=== PATIENT | female | born 1935 | race Caucasian/White ===

== ENCOUNTER 2019-09-11 13:35 | Inpatient (IN) | payer OTHER, MEDICAID ==
[2019-09-11] VITALS (9 sets, daily range): BP systolic 99–146
[~2019-09-11] VITALS: Ht 152.4 cm; Wt 45.4 kg
--- NOTE | 2019-09-11 13:42 | NUR ---
Patient triaged and remains in hallway on EMS gurney. VSS and patient appears in no acute distress at this time. Accompanied by EMS crew, awaiting available bed, and MD notified of need for MSE.
[2019-09-11] MEDS ORDERED: GABA-529 PO (13:50)
[2019-09-11] MEDS ORDERED: SENN8.6T19 PO (13:50)
[2019-09-11] MEDS ORDERED: NEPH PO (13:50)
[2019-09-11] MEDS ORDERED: VISM150C PO (13:50)
[2019-09-11] MEDS ORDERED: VIT1CAPS46 PO (13:50)
[2019-09-11] MEDS ORDERED: ASCO500T20 PO (13:50)
[2019-09-11] MEDS ORDERED: ACET-2165 PO (13:50)
[2019-09-11] MEDS ORDERED: ONDA4TAB5 PO (13:50)
--- NOTE | 2019-09-11 13:51 | NUR ---
Medication reconciliation completed with information provided by [facility]. Any prior medication reconciliation on file was reviewed and corrected.
--- NOTE | 2019-09-11 14:00 | NUR ---
EKG done and given to
[2019-09-11] MEDS ORDERED: NACL 0.9% 1,000 ML IV ONE (14:05)
--- NOTE | 2019-09-11 14:14 | NUR ---
Patient to ER bed 04 to gown for evaluation. Side rails up.
--- NOTE | 2019-09-11 14:18 | NUR ---
pt arrives from [facility], sent by Dr. Abbott. PT arrives w/ gen weakness and poor appetite. Pt is AAOx2. youth nutritional monitor placed.
--- NOTE | 2019-09-11 14:20 | NUR ---
ER at bedside examining patient.
[2019-09-11 14:34] LABS: BASOPHILS % (AUTO) 0.1 % (0.0-2.0); EOSINOPHILS # (AUTO) 0.1 K/uL (0.0-0.4); EOSINOPHILS % (AUTO) 0.4 % (0.0-4.0); HEMATOCRIT 32.8 % (36-48); HEMOGLOBIN 10.8 g/dL (12.0-16.0); LYMPHOCYTES # (AUTO) 0.9 K/uL (1.0-5.5); LYMPHOCYTES % (AUTO) 6.7 % (20.5-51.5); MEAN CORPUSCULAR HEMOGLOBIN 28 pg (27-31); MEAN CORPUSCULAR HGB CONC 33 % (32-36); MEAN CORPUSCULAR VOLUME 84 fL (79.0-98.0); NEUTROPHILS # (AUTO) 12.2 K/uL (1.8-7.7); NEUTROPHILS % (AUTO) 85.8 % (40.0-70.0); PLATELET COUNT (AUTO) 615 K/uL (130-430); RED BLOOD CELL COUNT(AUTO) 3.93 MIL/uL (4.2-6.2); RED CELL DISTRIBUTION WIDTH 16.8 % (9.0-15.0); WHITE BLOOD COUNT (AUTO) 14.2 K/uL (4.8-10.8)
[2019-09-11 14:51] LABS: ANION GAP 4 (5-15); CHLORIDE 91 mmol/L (98-107); CREATININE 0.44 mg/dL (0.55-1.30); GLUCOSE 98 mg/dL (70-99); SODIUM SERUM 122 mmol/L (136-145); UREA NITROGEN, BLOOD 13 mg/dL (8-21)
[2019-09-11 14:58] LABS: ALANINE AMINOTRANSFERASE 78 U/L (12-78); ALBUMIN 1.5 g/dL (3.4-4.8); ASPARTATE AMINOTRANSFERASE 38 U/L (10-37); LIPASE 49 U/L (73-393); TOTAL BILIRUBIN 0.3 mg/dL (0.0-1.0)
[2019-09-11 14:59] LABS: CALCIUM 6.8 mg/dL (8.4-11.0)
[2019-09-11] MEDS ORDERED: IPRATROPIUM BROM 0.5 MG/2.5 ML VIAL.NEB (ATROVENT) INH ONE (15:00)
[2019-09-11] MEDS ORDERED: LEVOFLOXACIN 500 MG/D5W 100 ML IV ONE (15:00)
[2019-09-11] MEDS ORDERED: methylPREDNISolone SOD SUCC/PF 62.5 MG/ML VIAL IVP ONE (15:00)
[2019-09-11] MEDS ORDERED: ALBUTEROL SULFATE 0.083% 2.5 MG/3 ML VIAL.NEB INH ONE (15:00)
[2019-09-11 15:12] LABS: INR 1.2 (0.8-1.2); PROTHROMBIN TIME 11.6 SECS (9.5-12.5)
--- NOTE | 2019-09-11 15:15 | NUR ---
pt currently getting a breathing tx at the bedside.
--- NOTE | 2019-09-11 15:35 | NUR ---
ND 1l and Levaquin currently infusing per MD order.
[2019-09-11] MEDS ORDERED: PIPERACILLIN/TAZO 3.375 GM in NS 50 ML IV ONE (16:00)
--- NOTE | 2019-09-11 16:07 | NUR ---
Patient will be admitted to care of Dr. Abbott. Admitted to ICU unit. Will go to room 7. Complete and up to date summary report printed. SBAR report to be given at bedside with opportunity for questions. Order obtained from Dr. Abbott notifed that Zosyn IV order would be a one time dose an additional orders need to be placed in CPOE.
[2019-09-11] MEDS ORDERED: VANCOMYCIN HCL 1 GM/NS PREMIX 250 ML IV SCH (16:30)
--- NOTE | 2019-09-11 16:40 | NUR ---
# 20 gauge angiocath placed to LAC. Use of asceptic technique. Opsite placed over site. Blood return noted. Blood for lab drawn from site. Flushed with 10 cc of normal saline. No evidence of infiltration noted. Patient tolerated well.
[2019-09-11] MEDS ORDERED: PIPERACILLIN/TAZOBACTAM 3.375 GM/VIAL (ZOSYN) IV ONE (16:43)
[2019-09-11] MEDS ORDERED: ONDANSETRON 4 MG ODT TAB PO PRN (16:45)
[2019-09-11] MEDS ORDERED: ACETAMINOPHEN 325 MG TABLET PO PRN (16:45)
--- NOTE | 2019-09-11 16:57 | NUR ---
Transferred Pt arrived to ICU 7 at 1650. Bedside report received from Jenae GRACIA at 1657. Pt denies any pain at this time. Blood pressure stable 110/50, Heart rate of 127, oxygen saturation 97% with 2 L via NC, respirations 22.
--- NOTE | 2019-09-11 17:00 | NUR ---
Patient will be admitted to care of Dr. Abbott. Admitted to ICU unit. Will go to room 7. Belongings list completed. Complete and up to date summary report printed.Bedside report given to Oksana GRACIA. IV sites x 2 patent and infusing well.
--- NOTE | 2019-09-11 17:32 | NUR ---
CONSULTS CALLED DR. Robert BOSWELL - RE: PNEUMONIA, SPOKE WITH BRIDGER (EXCHANGE) DR. Funmilayo BOSWELL - RE: HYPOTENSION/PNA DR. RAO - DR. LLANOS IS COVERING FOR HIM, SPOKE WITH JOSE ALEJANDRO ALCOCER: HYPONATREMIA, DR. BATES COVERING. SPOKE WITH PHYLLIS.
--- NOTE | 2019-09-11 18:00 | NUR ---
MD CONSULT DR. BATES, COVERING FOR DR. WRAY CALLED, MADE AWARE OF CONSULT. WITH ORDERS.
--- NOTE | 2019-09-11 18:15 | NUR ---
CHG Pt received CHG, tolerated well.
[2019-09-11 18:54] LABS: BILIRUBIN,URINE NEGATIVE (NEGATIVE); BLOOD, URINE 3+ (NEGATIVE); CLARITY/URINE CLOUDY (CLEAR); COLOR,URINE YELLOW (YELLOW); GLUCOSE,URINE NEGATIVE (NEGATIVE); KETONES,URINE NEGATIVE (NEGATIVE); LEUKOCYTE ESTERASE ,URINE 1+ (NEGATIVE); NITRITE, URINE NEGATIVE (NEGATIVE); PROTEIN URINE 2+ (NEGATIVE)
[2019-09-11] MEDS ORDERED: SODIUM CHLORIDE 3% *HI-ALERT* 150 ML IV SCH (19:00)
--- NOTE | 2019-09-11 19:20 | NUR ---
PM ASSESSMENT Pt in bed with eyes open resting comfortably. Able to follow commands and verbalize needs. Sinus tachycardia seen on the monitor. Pt on 2L O2 via NC tolerating well with O2 sats @ 100% and even and unlabored breathing. Pt has a LFA 24g SL and L AC 20g SL. C/D/I. Pt doesn't verbalize any needs at this time. Bed is locked and in lowest position, call light within reach, will cont to monitor pt.
--- NOTE | 2019-09-11 19:26 | NUR ---
Closing Notes Pt endorsed to Timur GRACIA. Pt resting with no signs of distress or complaints of pain
--- NOTE | 2019-09-11 19:35 | NUR ---
WOODY CATH: # 16 FR Woody catheter with 10 cc bulb inserted with use of sterile technique. Bulb inflated with 10 cc sterile water. Immediate return of urine noted. Bedside drainage bag placed below level of bladder. Pt tolerated procedure well. Will cont to monitor pt.
[2019-09-11 19:36] LABS: HEMATOCRIT 29.2 % (36-48); HEMOGLOBIN 9.7 g/dL (12.0-16.0); MEAN CORPUSCULAR HEMOGLOBIN 28 pg (27-31); MEAN CORPUSCULAR HGB CONC 33 % (32-36); MEAN CORPUSCULAR VOLUME 84 fL (79.0-98.0); PLATELET COUNT (AUTO) 490 K/uL (130-430); WHITE BLOOD COUNT (AUTO) 18.4 K/uL (4.8-10.8)
[2019-09-11] MEDS ORDERED: SODIUM CHLORIDE 3% *HI-ALERT* 500 ML IV ONE (19:57)
[2019-09-11 20:36] LABS: BACTERIA,URINE MODERATE /HPF (None Seen); MUCUS,URINE 3+ /LPF (None Seen); RBC,URINE 50-80 /HPF (0-3); WBC,URINE 20-50 /HPF (0-3)
[2019-09-11 21:01] LABS: ALANINE AMINOTRANSFERASE 70 U/L (12-78); ANION GAP 10 (5-15); ASPARTATE AMINOTRANSFERASE 53 U/L (10-37); CHLORIDE 94 mmol/L (98-107); CREATININE 0.28 mg/dL (0.55-1.30); GLUCOSE 148 mg/dL (70-99); PHOSPHORUS 3.1 mg/dL (2.7-4.5); POTASSIUM 4.4 mmol/L (3.5-5.1); SODIUM SERUM 124 mmol/L (136-145); TOTAL BILIRUBIN 0.4 mg/dL (0.0-1.0); UREA NITROGEN, BLOOD 12 mg/dL (8-21)
[2019-09-11 21:20] LABS: CALCIUM 6.9 mg/dL (8.4-11.0)
[2019-09-11] MEDS: NORMAL SALINE 5 ML DISP.SYRIN IVF SCH (21:22)
--- NOTE | 2019-09-11 21:28 | NUR ---
Dr. Conway called at this time for lab results. New orders received, will carry out orders. Will cont to monitor pt.
[2019-09-11] MEDS ORDERED: ALBUMIN HUMAN 25% 100 ML IV ONE (22:04)
[2019-09-11] MEDS ORDERED: MAGNESIUM SULFATE 1 GM/2 ML VIAL ONE ×2 (22:06→22:14)
[2019-09-11 22:13] LABS: BAND % (MANUAL) 21 % (0-6); BASOPHILS % (MANUAL) 0 % (0-2); EOSINOPHILS % (MANUAL) 0 % (0-7); LYMPHOCYTES % (MANUAL) 0 % (20-46); MONOCYTES % (MANUAL) 0 % (0-11)
[2019-09-11] MEDS ORDERED: MAGNESIUM SULFATE IV SCH (22:15)
[2019-09-11] MEDS ORDERED: NACL 0.9% IV SCH (22:15)
[2019-09-11] MEDS: ALBUMIN HUMAN 25% 100 ML IV SCH (22:21)
[2019-09-11 22:27] LABS: BILIRUBIN,URINE NEGATIVE (NEGATIVE); BLOOD, URINE 2+ (NEGATIVE); CLARITY/URINE CLEAR (CLEAR); COLOR,URINE YELLOW (YELLOW); GLUCOSE,URINE NEGATIVE (NEGATIVE); KETONES,URINE NEGATIVE (NEGATIVE); LEUKOCYTE ESTERASE ,URINE NEGATIVE (NEGATIVE); NITRITE, URINE NEGATIVE (NEGATIVE); PROTEIN URINE NEGATIVE (NEGATIVE)
[2019-09-11 23:21] LABS: BACTERIA,URINE FEW /HPF (None Seen); WBC,URINE 0-3 /HPF (0-3)
[2019-09-11] MEDS ORDERED: PIPERACILLIN/TAZOBACTAM 2.25 GM VIAL IV ONE (23:50)
[2019-09-11] MEDS ORDERED: VANCOMYCIN HCL 500 MG/VIAL IV ONE (23:50)
[2019-09-11] MEDS: PIPERACILLIN/TAZO 2.25G/DEX-IS 50 ML IV SCH (23:51)
[2019-09-12] VITALS (17 sets, daily range): BP systolic 92–130
--- NOTE | 2019-09-12 02:10 | NUR ---
Pt in bed with eyes closed resting comfortably, no signs of acute distress or discomfort noted. Pt repositioned at this time. Bed is locked and in lowest position, call light within reach, will cont to monitor pt.
[2019-09-12] MEDS: ALBUMIN HUMAN 25% 100 ML IV SCH ×2 (02:48→09:25)
--- NOTE | 2019-09-12 04:10 | NUR ---
Pt in bed with eyes closed resting comfortably, no signs of acute distress or dis comfort noted. Bed is locked and in lowest position, call light within reach, will cont to monitor pt.
[2019-09-12] MEDS ORDERED: VANCOMYCIN HCL 500 MG in NS 100 ML IV SCH (05:00)
[2019-09-12] MEDS: NORMAL SALINE 5 ML DISP.SYRIN IVF SCH ×2 (05:31→21:01)
[2019-09-12] MEDS: PIPERACILLIN/TAZO 2.25G/DEX-IS 50 ML IV SCH ×3 (05:32→16:58)
[2019-09-12 06:02] LABS: BASOPHILS % (AUTO) 0.1 % (0.0-2.0); HEMATOCRIT 23.6 % (36-48); HEMOGLOBIN 7.8 g/dL (12.0-16.0); LYMPHOCYTES # (AUTO) 0.4 K/uL (1.0-5.5); LYMPHOCYTES % (AUTO) 4.2 % (20.5-51.5); MEAN CORPUSCULAR HEMOGLOBIN 28 pg (27-31); MEAN CORPUSCULAR HGB CONC 33 % (32-36); MEAN CORPUSCULAR VOLUME 84 fL (79.0-98.0); MONOCYTES # (AUTO) 0.2 K/uL (0.0-1.0); MONOCYTES % (AUTO) 2.6 % (1.7-9.3); NEUTROPHILS # (AUTO) 8.8 K/uL (1.8-7.7); NEUTROPHILS % (AUTO) 93.1 % (40.0-70.0); PLATELET COUNT (AUTO) 473 K/uL (130-430); RED BLOOD CELL COUNT(AUTO) 2.82 MIL/uL (4.2-6.2); RED CELL DISTRIBUTION WIDTH 17.1 % (9.0-15.0); WHITE BLOOD COUNT (AUTO) 9.5 K/uL (4.8-10.8)
[2019-09-12 06:18] LABS: ALANINE AMINOTRANSFERASE 48 U/L (12-78); ALBUMIN 2.5 g/dL (3.4-4.8); ANION GAP 11 (5-15); ASPARTATE AMINOTRANSFERASE 26 U/L (10-37); CALCIUM 7.3 mg/dL (8.4-11.0); CHLORIDE 98 mmol/L (98-107); CREATININE 0.34 mg/dL (0.55-1.30); GLUCOSE 146 mg/dL (70-99); POTASSIUM 3.7 mmol/L (3.5-5.1); SODIUM SERUM 133 mmol/L (136-145); TOTAL BILIRUBIN 0.4 mg/dL (0.0-1.0); UREA NITROGEN, BLOOD 9 mg/dL (8-21)
[2019-09-12 06:29] LABS: TOTAL IRON BIND. CAPACITY 45 ug/dL (250-450)
--- NOTE | 2019-09-12 06:52 | NUR ---
Nutrition Update Richard Scale 15 noted. Pt admitted for Hypotension, Hyponatremia, Pneumonia Diet: no diet order BMI: 19.5 kg/m2 RD to follow per nutrition care standards.
--- NOTE | 2019-09-12 07:20 | NUR ---
ENDORSEMENT Report given to oncoming dayshift RN using SBAR format and pt care was endorsed. No signs of acute distress or discomfort noted.
[2019-09-12 07:23] LABS: PHOSPHORUS 3.2 mg/dL (2.7-4.5)
--- NOTE | 2019-09-12 07:50 | NUR ---
AM ASSESSMENT. PT VERBALLY RESPONSIVE, ASSESSED FOR BODY DISCOMFORTS, DENIES ANY, ABDOMEN DISTENDED, OFFERED SOMETHING TO DRINK, PT DECLINED, IVF CHANGED TO D5NS AT 30 ML PER HR ORDERED. TURNED PT AND REPOSITIONED IN BED, WITH PILLOW TO SUPPORT HER BACK.
--- NOTE | 2019-09-12 08:00 | NUR ---
IV. DRESSING ON LEFT FOREARM DATED 09/08, IV DISCONTINUED.
[2019-09-12] MEDS: D5NS 1,000 ML IV SCH (08:15)
[2019-09-12] MEDS: LEVOFLOXACIN 250 MG/D5W 50 ML IV SCH (08:18)
[2019-09-12] MEDS: ASCORBIC ACID 500 MG TABLET PO SCH (08:18)
[2019-09-12] MEDS: NEPHROVITE, (FOLIC ACID/VITAMIN B COMP W-C 1 TAB) PO SCH (08:18)
--- NOTE | 2019-09-12 08:50 | NUR ---
G.I. CONSULT. DR LLANOS CAME IN AND EXAMINED PT. NEW ORDERS RECEIVED.
--- NOTE | 2019-09-12 09:45 | NUR ---
CONSENT. EXPLAINED TO PT ABOUT CT SCAN, USING IV AND ORAL CONTRAST, PT SIGNED CONSENT.
--- NOTE | 2019-09-12 11:00 | NUR ---
CONTRAST. ORAL CONTRAST GIVEN, PT TOLERATED WELL.
[2019-09-12 11:44] LABS: URINE SODIUM, RANDOM 38 mmol/L (40-220)
[2019-09-12] MEDS ORDERED: IOHEXOL 100 ML IV ONE (13:32)
--- NOTE | 2019-09-12 13:40 | NUR ---
TO CT SCAN. PT TRANSPORTED VIA BED FOR CT SCAN OF THE ABDOMEN/PELVIS, ON CONTINUOUS O2 AND CARDIAC MONITORING.
--- NOTE | 2019-09-12 14:10 | NUR ---
Returned from CT to ICU bed 7 using ACLS protocol and RNBerny GUNTER on monitor upon return.
[2019-09-12] MEDS: SOD FERRIC GLUC COMPLEX/SUC 125 MG in NS 100 ML IV SCH (14:20)
--- NOTE | 2019-09-12 16:00 | NUR ---
TO [facility]. TRANSFERRED CARE TO SAMIA WING. PT TRANSPORTED VIA BED TO ROOM 119-C, WITH PERSONAL BELONGINGS, ON CARDIAC MONITORING AND O2 VIA NASAL CANNULA.
--- NOTE | 2019-09-12 16:10 | NUR ---
Transfer from ICU: Received patient from ICU. Patient is oriented x3. Denies dizziness. Oriented to room. Call light within reach.
[2019-09-12] MEDS: VANCOMYCIN HCL 500 MG in NS 100 ML IV SCH (18:20)
--- NOTE | 2019-09-12 19:00 | NUR ---
END OF SHIFT: NEEDS ATTENED. NO CHANGE IN ASSESSMENT
--- NOTE | 2019-09-12 19:20 | NUR ---
INITIAL NOTES: pt is awake, alert, oriented x 2, no pain, not distress. pt has ongoing ivf to left fore arm gauge 20-intact and patent. pt has iv lock to right fore arm gauge 20-intact and patent. pt has carpio catheter gibraltarian 18- draining to yellow urine. no skin breakdown on scd for dvt prophylaxis. discuss to plan of care. needs attended, fabi light in reach. side rails up. ow bed position and lock. will monitor.
--- NOTE | 2019-09-12 21:07 | NUR ---
CARE ENDORSE TO SAMIA CORBETT.
--- NOTE | 2019-09-12 22:00 | NUR ---
PT [id number] AWAKE ALERT AND ORIENTED X3 .PT ON HAVE ALITTLE SOB PT SATURATION AT 90% . OXYGENATION 88- 90% . OXGEN INCREASED TO 4LN/N CRTION UP TO ,SATURATION 94%.iv site intact .WILL CONTINUE TO MONITOR PT,S OXYGENATION .
[2019-09-13] VITALS (13 sets, daily range): BP systolic 102–138
--- NOTE | 2019-09-13 | NUR ---
PT SLEEPING SOUNDLY . WITH NO DIFFICULTYVITALS STABLE .
[2019-09-13] MEDS: PIPERACILLIN/TAZO 2.25G/DEX-IS 50 ML IV SCH ×4 (00:37→23:24)
--- NOTE | 2019-09-13 05:00 | NUR ---
PT AWAKE , TURNED AND REPOSITIONED .. PT HAVE NO SOB . WILL CONTIUE TO MONITOR PT,S FOR RESPITORY DISTRESS.
[2019-09-13] MEDS: NORMAL SALINE 5 ML DISP.SYRIN IVF SCH ×3 (06:51→22:00)
[2019-09-13 06:56] LABS: BASOPHILS % (AUTO) 0.1 % (0.0-2.0); HEMATOCRIT 28.4 % (36-48); HEMOGLOBIN 9.4 g/dL (12.0-16.0); LYMPHOCYTES # (AUTO) 0.9 K/uL (1.0-5.5); LYMPHOCYTES % (AUTO) 4.4 % (20.5-51.5); MEAN CORPUSCULAR HEMOGLOBIN 28 pg (27-31); MEAN CORPUSCULAR HGB CONC 33 % (32-36); MEAN CORPUSCULAR VOLUME 83 fL (79.0-98.0); MONOCYTES # (AUTO) 0.9 K/uL (0.0-1.0); MONOCYTES % (AUTO) 4.5 % (1.7-9.3); NEUTROPHILS # (AUTO) 18.9 K/uL (1.8-7.7); PLATELET COUNT (AUTO) 613 K/uL (130-430); RED BLOOD CELL COUNT(AUTO) 3.41 MIL/uL (4.2-6.2); RED CELL DISTRIBUTION WIDTH 17.4 % (9.0-15.0)
[2019-09-13 07:01] LABS: ALANINE AMINOTRANSFERASE 41 U/L (12-78); ALBUMIN 2.6 g/dL (3.4-4.8); ANION GAP 8 (5-15); ASPARTATE AMINOTRANSFERASE 22 U/L (10-37); CALCIUM 7.8 mg/dL (8.4-11.0); CHLORIDE 99 mmol/L (98-107); CREATININE 0.36 mg/dL (0.55-1.30); GLUCOSE 188 mg/dL (70-99); POTASSIUM 3.2 mmol/L (3.5-5.1); SODIUM SERUM 133 mmol/L (136-145); TOTAL BILIRUBIN 0.3 mg/dL (0.0-1.0); UREA NITROGEN, BLOOD 11 mg/dL (8-21)
[2019-09-13 07:37] LABS: WHITE BLOOD COUNT (AUTO) 20.8 K/uL (4.8-10.8)
[2019-09-13] MEDS: D5NS 1,000 ML IV SCH ×2 (07:40→17:47)
[2019-09-13] MEDS: VANCOMYCIN HCL 500 MG in NS 100 ML IV SCH ×2 (07:50→17:47)
[2019-09-13 08:09] LABS: FOLATE (FOLIC ACID) >20.0 ng/mL (>3.0)
--- NOTE | 2019-09-13 09:10 | NUR ---
Routine Scheduled po medications and IV abx given per order. Patient stable at this time.
--- NOTE | 2019-09-13 09:10 | NUR ---
MRSA Critical result Walking down max and US asking bedside RN to take a call from lab for a critical result. Observed MT ask RN 2x and RN unable to take the call. No other RN's available in sight. I took critical result and notified Olga in person of result MRSA positive nares.
[2019-09-13] MEDS: NEPHROVITE, (FOLIC ACID/VITAMIN B COMP W-C 1 TAB) PO SCH (09:11)
[2019-09-13] MEDS: ASCORBIC ACID 500 MG TABLET PO SCH (09:11)
[2019-09-13] MEDS: LEVOFLOXACIN 250 MG/D5W 50 ML IV SCH (09:11)
[2019-09-13] MEDS: SOD FERRIC GLUC COMPLEX/SUC 125 MG in NS 100 ML IV SCH (11:43)
--- NOTE | 2019-09-13 11:45 | NUR ---
Routine Scheduled IV med (ferrlecit) given per order. Patient resting quietly in bed with no respiratory distress noted.
--- NOTE | 2019-09-13 13:15 | NUR ---
Routine Scheduled IV abx given per order. Patient resting in bed with no respiratory distress noted.
--- NOTE | 2019-09-13 15:45 | NUR ---
Routine Patient cold and clammy, with resp rate of 32. Checked blood sugar: 432 mg/dl. Doctor call and new orders given and carried out; stat ABG. Patient placed on BiPap. Addendum: 09/13/19 at 1946 by Olga Hernandez RN 1545: very low O2 sats 1415: Patient transferred to ICU.
[2019-09-13] MEDS ORDERED: POTASSIUM CHLORIDE 20 MEQ TAB.PRT.SR PO ONE (16:00)
[2019-09-13] MEDS ORDERED: IPRATROPIUM/ALBUTEROL SULFATE 3 ML AMPUL.NEB (DUONEB) INH ONE (16:00)
[2019-09-13] MEDS ORDERED: IPRATROPIUM/ALBUTEROL SULFATE 3 ML AMPUL.NEB (DUONEB) INH PRN (16:00)
--- NOTE | 2019-09-13 16:20 | NUR ---
Transfer Pt transferred to ICU bed 1, report received from Olga GRACIA.
--- NOTE | 2019-09-13 16:50 | NUR ---
Dietitian Recommendations * Recommend continuing clear liquid diet (ONS Ensure Clear TID provides 720 kcal/day, 24 gm protein/day) * Consider advance diet if/when medically appropriate LP, RD Please refer to Nutrition Assessment for details. Addendum: 09/13/19 at [address] Amended: Links added.
--- NOTE | 2019-09-13 17:02 | NUR ---
Spoke to Dr. Abbott to change PO potassium to IV. New orders received.
--- NOTE | 2019-09-13 17:11 | NUR ---
MD Michelle kamara, spoke to Millie with the exchange, awaiting call back.
[2019-09-13] MEDS ORDERED: POTASSIUM CHLORIDE 40 MEQ in NS 250 ML IV ONE (17:15)
--- NOTE | 2019-09-13 18:35 | NUR ---
MD Dr. Abbott at bedside with pt.
--- NOTE | 2019-09-13 19:20 | NUR ---
Closing Notes Report given to night RN. Pt resting comfortably with eyes open, no complaints of pain or distress. Isolation precautions observed.
--- NOTE | 2019-09-13 20:00 | NUR ---
ASSESSMENT Pt alert, answers simple "yes" or "no" questions. Bipap in use, Pt comfortable. 20ga right forearm and 20ga LAC no redness or swelling noted @ sites. IVF infusing. Almaraz cath in use draining lakshmi urine. Low air loss mattress in use, SCD in use.
--- NOTE | 2019-09-13 20:00 | NUR ---
TURNING Pt not tolerating turning from side to side. Pt becomes very short of breath and oxygen saturation decreases.
--- NOTE | 2019-09-13 21:03 | NUR ---
AT 20:40 BIPAP RESTARTED AFTER 10 MINS ON HIGH FLOW AT 60% FIO2. PT DESATURATED IN THE 60'S. RN AWARE.
--- NOTE | 2019-09-13 21:51 | NUR ---
MD QUEZADA-DR. COFFEY [phone] SPOKE TO SUNITHA
--- NOTE | 2019-09-13 21:55 | NUR ---
DR ERLINDA Mathews notified regarding O2 saturation less than 90%. No orders received. Continue to monitor for changes.
[2019-09-13] MEDS: FUROSEMIDE 20 MG/2 ML VIAL IVP SCH (23:25)
[2019-09-13] MEDS: IPRATROPIUM/ALBUTEROL SULFATE 3 ML AMPUL.NEB (DUONEB) INH SCH (23:35)
[2019-09-14] VITALS (23 sets, daily range): BP systolic 100–138
[2019-09-14] MEDS: IPRATROPIUM/ALBUTEROL SULFATE 3 ML AMPUL.NEB (DUONEB) INH SCH ×5 (04:59→20:36)
[2019-09-14] MEDS: VANCOMYCIN HCL 500 MG in NS 100 ML IV SCH (05:42)
[2019-09-14] MEDS: FUROSEMIDE 20 MG/2 ML VIAL IVP SCH (07:38)
[2019-09-14] MEDS: PIPERACILLIN/TAZO 2.25G/DEX-IS 50 ML IV SCH (07:39)
[2019-09-14] MEDS ORDERED: FUROSEMIDE 40 MG/4 ML VIAL ONE (07:45)
--- NOTE | 2019-09-14 08:00 | NUR ---
INITIAL ASSESSMENT DONE. PT IS AWAKE, ALERT FOLLOWING COMMANDS. SCOPE SHOWS STACH, NO ECTOPICS. BP STABLE. ON BIPAP, 100% FIO2. UNABLE TO TOLERATES PO. WOODY CATH DRAINING WELL
--- NOTE | 2019-09-14 08:30 | NUR ---
Dr. Mathews was here, ABG results noted. Orders received..
[2019-09-14] MEDS: LEVOFLOXACIN 250 MG/D5W 50 ML IV SCH (08:38)
[2019-09-14] MEDS: NEPHROVITE, (FOLIC ACID/VITAMIN B COMP W-C 1 TAB) PO SCH (09:00)
[2019-09-14] MEDS: ASCORBIC ACID 500 MG TABLET PO SCH (09:00)
[2019-09-14] MEDS ORDERED: cefTRIAXone 1 GM in D5W 50 ML IV SCH (10:00)
[2019-09-14] MEDS: SOD FERRIC GLUC COMPLEX/SUC 125 MG in NS 100 ML IV SCH (11:08)
--- NOTE | 2019-09-14 13:00 | NUR ---
Dr. Abbott called upated with pt condition. order received to keep pt NPO. P t desaturates very easily if BIPAP is off face.
[2019-09-14] MEDS: FUROSEMIDE 100 MG in D5W 90 ML IV SCH (13:17)
--- NOTE | 2019-09-14 14:00 | NUR ---
Lasix drip started at 2mg/hr. repositioned to side. urine output adequate.
--- NOTE | 2019-09-14 15:15 | NUR ---
Attempted to reach pt's conservator to obtain consent for PICC line , unable to reach.
--- NOTE | 2019-09-14 15:30 | NUR ---
Dr. Conway was here, update given. Repositioned to side.
--- NOTE | 2019-09-14 17:30 | NUR ---
Pt desaturating . to 70's. O2 at 100% FIO2. RT at bedside, suctioned pt.
[2019-09-14] MEDS ORDERED: VANCOMYCIN HCL 750 MG in NS 250 ML IV SCH (18:00)
--- NOTE | 2019-09-14 18:40 | NUR ---
Dr. Abdul called for ABG results ordered intubation' ER MD Dr. Akers called.
--- NOTE | 2019-09-14 18:55 | NUR ---
Dr Abbott called regarding pt's condition deteriorating, o2 sat 70's. ABG'S ordered.
--- NOTE | 2019-09-14 19:15 | NUR ---
Dr. Akers at bedside, intubated pt orally without difficulty. SBAR Report given to SAMIA Fernandez.
--- NOTE | 2019-09-14 20:00 | NUR ---
ORALLY INTUBATED. SUCTIONED WITH MOD AMOUNT OF THICK PINK-TINGED YELLOW MUCUS OBTAINED. OGT INSERTED, CLAMPED. PLACEMENT VERIFIED BY AUSCULTATION AND POST INTUBATION C-XRAY. ON LASIX DRIP AT 2 MG/HR. SINUS TACH. BREATH SOUNDS WITH RALES AND RHONCHI. BOWEL SOUNDS (+). PULSES PALPABLE. SKIN W/DRY. COLOR SATISFACTORY. HOB UP TO COMFORT. SIDE RAILS UP. CALL LIGHTS WITHIN REACH. KOBE SCD'S IN PLACE. SINUS TACHYCARDIA
--- NOTE | 2019-09-14 20:50 | NUR ---
DR HAQ NOTIFIED OF ABG RESULTS. NEW ORDERS GIVEN TO BE IMPLEMENTED.
--- NOTE | 2019-09-14 22:00 | NUR ---
SUCTIONED. TURNED. HS CARE DONE.
--- NOTE | 2019-09-14 23:15 | NUR ---
FIO2 DECREASED TO 90% BY RT PER STANDING ORDER.
[2019-09-15] VITALS (34 sets, daily range): BP systolic 89–131
--- NOTE | 2019-09-15 | NUR ---
MORE ALERT. VSS. OPENS EYES SPONTANEOUSLY. SQUEEZED HANDS ON COMMAND. SUCTIONED. ORAL CARE RENDERED.
--- NOTE | 2019-09-15 01:00 | NUR ---
DR Robert BOSWELL HERE, UPDATED ON STATUS. NO NEW ORDERS GIVEN AT THIS TIME.
--- NOTE | 2019-09-15 01:45 | NUR ---
FIO2 DECREASED TO 70 % PER STANDING ORDER.
--- NOTE | 2019-09-15 02:50 | NUR ---
FIO2 DECREASED TO 60% BY RT PER STANDING ORDER.
[2019-09-15] MEDS: IPRATROPIUM/ALBUTEROL SULFATE 3 ML AMPUL.NEB (DUONEB) INH SCH ×6 (02:54→23:05)
--- NOTE | 2019-09-15 03:00 | NUR ---
1 SMALL SOFT BROWN STOOL DEFECATED, CLEANED. LUIS E-CARE GIVEN. WOODY CARE, BACK CARE, Z-GUARD APPLIED TO PERINEUM, SKIN CARE RENDERED. PARTIAL LINEN CHANGE. MINIMAL ASSIST WITH TURNING. LEEROY PROC WELL.
--- NOTE | 2019-09-15 04:00 | NUR ---
RESISTIVE TO ORAL CARE. SUCTIONED. TURNED.
--- NOTE | 2019-09-15 05:55 | NUR ---
FIO2 DECREASED TO 50% BY RT PER STANDING ORDER.
--- NOTE | 2019-09-15 06:00 | NUR ---
SLEPT FOR LONG PERIODS OF TIME. UO GOOD. REMAINS IN GUARDED CONDITION.
--- NOTE | 2019-09-15 07:10 | NUR ---
AM ASSESSMENT Pt received from night RN using SBAR
[2019-09-15 07:30] LABS: ANION GAP 8 (5-15); CHLORIDE 104 mmol/L (98-107); CREATININE 0.69 mg/dL (0.55-1.30); GLUCOSE 158 mg/dL (70-99); SODIUM SERUM 137 mmol/L (136-145); UREA NITROGEN, BLOOD 21 mg/dL (8-21)
[2019-09-15 07:35] LABS: POTASSIUM 2.3 mmol/L (3.5-5.1)
--- NOTE | 2019-09-15 07:45 | NUR ---
PAGED Funmilayo RIVAS PER NURSE DIALED [phone] SPOKE TO EXCHANGE
[2019-09-15] MEDS ORDERED: DILTIAZEM HCL 25 MG/5 ML VIAL ONE (08:26)
[2019-09-15] MEDS: ASCORBIC ACID 500 MG TABLET PO SCH (09:09)
[2019-09-15] MEDS: KCL 20 mEq in 100 mL (PREMIX) 100 ML IV SCH ×4 (09:09→21:12)
[2019-09-15] MEDS: LEVOFLOXACIN 250 MG/D5W 50 ML IV SCH (09:10)
--- NOTE | 2019-09-15 09:29 | NUR ---
MD Dr. Horner informed of pts heart rate, new orders received.
[2019-09-15] MEDS ORDERED: DILTIAZEM HCL 25 MG/5 ML VIAL IVP ONE (09:45)
[2019-09-15] MEDS: SOD FERRIC GLUC COMPLEX/SUC 125 MG in NS 100 ML IV SCH (10:19)
[2019-09-15] MEDS: FUROSEMIDE 100 MG in D5W 90 ML IV SCH ×2 (10:20→21:14)
--- NOTE | 2019-09-15 11:09 | NUR ---
PATIENT RESTING: Patient resting quietly. No acute distress noted.
[2019-09-15] MEDS: DILTIAZEM HCL 125 MG in D5W 100 ML IV SCH ×2 (11:46→21:16)
[2019-09-15] MEDS: MEROPENEM 500 MG in NS 50 ML IV SCH ×2 (11:46→21:25)
--- NOTE | 2019-09-15 16:00 | NUR ---
PATIENT RESTING: Patient resting quietly. No acute distress noted.
[2019-09-15] MEDS: KCL 40mEq in D5/0.45NS 1000 mL 1,000 ML IV SCH ×2 (18:10→21:10)
--- NOTE | 2019-09-15 19:15 | NUR ---
Closing Notes Pt endorsed to night RN using SBAR
--- NOTE | 2019-09-15 20:00 | NUR ---
OPENS EYES SPONTANEOUSLY. COMPLIANT TO SIMPLE COMMANDS. ORALLY INTUBATED. SUCTIONED WITH MOD AMOUNT OF THICK PINK TINGED YELLOW MUCUS OBTAINED. ORAL CARE RENDERED. OGT CLAMPED. KEVIN PICC LINE INSERTED EARLIER AT 1900. XRAY VERIFIED OKAY TO USE. ALL LINED CHANGED TO NEW LINES. ON LASIX DRIP AT 2 MG/HR. ON CARDIZEM DRIP AT 10 MG.HR. ON D5 1/2 NS + 40 MEQ KCL AT 30CC/HR. 2ND KRIDER D5W + 20 KCL AT 50CC/HR HUNG. BREATH SOUNDS WITH ADVENTITIOUS SOUNDS. BOWEL SOUNDS (+). PULSES PALPABLE. SKIN W/D. COLOR SATISFACTORY. HOB UP TO COMFORT. SIDE RAILS UP. CALL LIGHTS WITHIN REACH. WOODY CATH PATENT DRAINING CLEAR YEN URINE TO GRAVITY. AFIB ON THE MONITOR. KOBE SCD'S IN PLACE. CONTACT ISOLATION OBSERVED.
--- NOTE | 2019-09-15 22:00 | NUR ---
SUCTIONED WITH SAME RESULTS. HS CARE. TURNED.
[2019-09-16] VITALS (35 sets, daily range): BP systolic 96–126
--- NOTE | 2019-09-16 | NUR ---
DOZES ON AND OFF. ORAL CARE GIVEN. RESISTIVE. REPOSITIONED.
[2019-09-16] MEDS ORDERED: VANCOMYCIN HCL 1,000 MG in D5W 250 ML IV SCH (01:00)
--- NOTE | 2019-09-16 02:00 | NUR ---
HR SUSTAINING IN THE 130'S AND 140'S. CARDIZEM DRIP INCREASED TO 15 MG/HR PER PROTOCOL.
--- NOTE | 2019-09-16 03:20 | NUR ---
PT SATURATING IN THE HIGH 80'S, FIO2 INCREASED TO 55% PER STANDING ORDER.
[2019-09-16] MEDS: IPRATROPIUM/ALBUTEROL SULFATE 3 ML AMPUL.NEB (DUONEB) INH SCH ×6 (03:25→23:33)
--- NOTE | 2019-09-16 04:00 | NUR ---
SLEPT FOR LONG PERIODS OF TIME. ORAL CARE GIVEN. SUCTIONED. TURNED.
[2019-09-16] MEDS: DILTIAZEM HCL 125 MG in D5W 100 ML IV SCH (04:28)
--- NOTE | 2019-09-16 06:00 | NUR ---
UO ADEQUATE. 1 SMALL BROWN STOOL. CLEANED. LUIS E-CARE, WOODY CARE, SKIN CARE, BACK CARE DONE. PARTIAL LINEN CHANGE. ASSISTS WITH TURNING. LEEROY PROC WELL. CARDIZEM DRIP AT 15 MG/HR. REMAINS IN GUARDED CONDITION.
[2019-09-16 06:12] LABS: BASOPHILS % (AUTO) 0.1 % (0.0-2.0); LYMPHOCYTES # (AUTO) 0.6 K/uL (1.0-5.5); LYMPHOCYTES % (AUTO) 3.6 % (20.5-51.5); MEAN CORPUSCULAR HEMOGLOBIN 28 pg (27-31); MEAN CORPUSCULAR HGB CONC 33 % (32-36); MEAN CORPUSCULAR VOLUME 83 fL (79.0-98.0); MONOCYTES # (AUTO) 0.3 K/uL (0.0-1.0); MONOCYTES % (AUTO) 1.8 % (1.7-9.3); NEUTROPHILS # (AUTO) 15.9 K/uL (1.8-7.7); NEUTROPHILS % (AUTO) 94.5 % (40.0-70.0); PLATELET COUNT (AUTO) 194 K/uL (130-430); RED BLOOD CELL COUNT(AUTO) 2.89 MIL/uL (4.2-6.2); RED CELL DISTRIBUTION WIDTH 17.2 % (9.0-15.0); WHITE BLOOD COUNT (AUTO) 16.8 K/uL (4.8-10.8)
[2019-09-16 06:28] LABS: ALANINE AMINOTRANSFERASE 66 U/L (12-78); ALBUMIN 1.7 g/dL (3.4-4.8); ANION GAP 7 (5-15); ASPARTATE AMINOTRANSFERASE 60 U/L (10-37); CHLORIDE 106 mmol/L (98-107); CREATININE 0.86 mg/dL (0.55-1.30); GLUCOSE 173 mg/dL (70-99); PHOSPHORUS 2.9 mg/dL (2.7-4.5); SODIUM SERUM 141 mmol/L (136-145); TOTAL BILIRUBIN 0.4 mg/dL (0.0-1.0); UREA NITROGEN, BLOOD 32 mg/dL (8-21)
--- NOTE | 2019-09-16 08:00 | NUR ---
AM ASSESSMENT. PT ON LASIX DRIP AT 2 MG/HR, CARDIZEM DRIP AT 15 ML PER HR, EQUIPMENT APPLICATION SPECIALIST ATRIAL FIB, ASSESSED PT FOR PAIN, SHAKES HER HEAD TO SIDE FOR A NO ANSWER, TURNED IN BED FOR COMFORT, PT ORALLY INTUBATED, ORAL HYGIENE GIVEN, WILL CONTINUE TO MONITOR.
[2019-09-16] MEDS: VANCOMYCIN HCL 1 GM/NS PREMIX 250 ML IV SCH (08:08)
[2019-09-16] MEDS ORDERED: KCL 40 mEq in 100 mL (PREMIX) 100 ML IV ONE (08:15)
[2019-09-16] MEDS: FUROSEMIDE 100 MG in D5W 90 ML IV SCH (09:33)
[2019-09-16] MEDS: NEPHROVITE, (FOLIC ACID/VITAMIN B COMP W-C 1 TAB) PO SCH (09:35)
[2019-09-16] MEDS: ASCORBIC ACID 500 MG TABLET PO SCH (09:35)
[2019-09-16] MEDS: MEROPENEM 500 MG in NS 50 ML IV SCH ×2 (09:46→21:38)
[2019-09-16] MEDS: LEVOFLOXACIN 250 MG/D5W 50 ML IV SCH (10:43)
[2019-09-16] MEDS: SOD FERRIC GLUC COMPLEX/SUC 125 MG in NS 100 ML IV SCH (10:51)
[2019-09-16] MEDS ORDERED: DILTIAZEM HCL 60 MG TABLET PO ONE (14:15)
[2019-09-16] MEDS ORDERED: ONDANSETRON 4 MG ODT TAB GT PRN (14:22)
--- NOTE | 2019-09-16 14:45 | NUR ---
IV DRIPS. CARDIZEM DRIP DISCONTINUED ORDERED BY DR Michelle BOSWELL.
--- NOTE | 2019-09-16 15:35 | NUR ---
Nutrition F/U RD reviewed pt's current EMR record including diet Hx, physician notes, nursing notes, pertinent labs/meds/procedures, care trends, and care activity. Admission Dx: Hypotension, hyponatremia, pneumonia R pleural effusion Pt also found w/ sepsis per physician notes PMH: OA, UTI, L femur fracture per physician notes Current Diet Order/Nutrition Support: NPO x2 days Subjective Info: Pt was seen earlier today, +intubated on vent support w/ RN providing care at bedside. Pt has an OGT but no nutrition support. OGT used for meds only at this time per RN report. Electrical Designer rounded (Funmilayo Horner) during RD visit -- he stated start pt on TF (Pulmocare TF) -- RD suggested Vital AF TF formula as this is the closest formula to Pulmocare and is indicated for pt's current critical condition. Physician stated to start pt on 30 ml/hr, and increase to RD goal for feeding. Current % PO N/A NEW Estimated Energy Expenditure (kcals/day) -- Minute volume: 12.9/Temperature: 37.3 degrees C 1200 kcal/day (PSU 2003b for critical illness, intubated/vent support) Estimated Protein Required (g/day) 68-90 gm/day (1.5-2 gm/kg CBW for sepsis) Estimated Fluid Required (l/day) 1.1-1.4 L/day (25-30 ml/kg CBW for geriatric maintenance) Problem/Etiology/Signs/Symptoms (modified) Inadequate nutritional intakes related to lack of appetite/nutrition support as evidenced by negligible PO intake records/NPO status x2 days. *ongoing Expected Outcomes/Goals - Monitor advancement of diet, appetite, and PO intakes w/ goal of pt meeting greater than 50% of estimated nutritional needs, labs trending WNL, normal GI function, and skin integrity/wt maintenance Dietitian Recommendations * Recommend Vital AF 1.2 at 30 ml/hr, increase by 5 ml Q8h to goal rate of 40 ml/hr, Free Water Flush: 100 ml Q6h via OGT Provides: 1152 kcal/day, 72 gm protein/day, and 1179 ml free water/day Meets: 96% of estimated caloric needs and 80% of upper end of estimated protein needs Follow Up High Risk: F/U in 2-3 days
--- NOTE | 2019-09-16 15:43 | NUR ---
Dietitian Recommendations * Recommend Vital AF 1.2 at 30 ml/hr, increase by 5 ml Q8h to goal rate of 40 ml/hr, Free Water Flush: 100 ml Q6h via OGT Provides: 1152 kcal/day, 72 gm protein/day, and 1179 ml free water/day Meets: 96% of estimated caloric needs and 80% of upper end of estimated protein needs LP, RD Please refer to Nutrition F/U for derails.
--- NOTE | 2019-09-16 18:50 | NUR ---
PT SEEN AND EXAMINED BY DR BATES, NEW ORDERS RECEIVED AND CARRIED OUT.
--- NOTE | 2019-09-16 20:00 | NUR ---
RECEIVED REPORT PATIENT IS AWKE ORALL VENTED ON AC MODE RATE OF 14 WITH FIO2 55%,PATIENT IS ABLE TO FOLLOW SIMPLE COMMAND BY GRASPING MY HAND ON COMMAND AND MOVED HER LEGS ON COMMAND.PATIENT IS IN ATRIAL FIB RATE OF 112/MIN.PATIENT ON CONTINOUS FEEDING ,ABDOMEN IS SLGHT DISTENDED BUT SOFT HAS POSITIVE BOWEL SOUND.PATIENT MAINTENANCE IV IS INFUSING AT 30CC/HR INFUSING THRU HER PICC LINE ON RIGHT UPPER FOREARM,PATIENT IS ALSO ON LASIX DRP AT 4 MG/HR.WOODY CATH IN PLACE URINE IS CLEAR .BLATERAL SEQUENTIAL N PLACE.SUCTIONED FOR MINMAL SECRETIONS ,REPOSITIONED PATIENT WITH HEAD OF BED ELEVATED. PATIENT PREVIOUS IV SITE ON LEFT AC IS WEEPNG NO BLEEDING.
[2019-09-16] MEDS: ALBUMIN HUMAN 25% 100 ML IV SCH (20:21)
[2019-09-17] VITALS (34 sets, daily range): BP systolic 89–142
--- NOTE | 2019-09-17 | NUR ---
PATIENT REMAIN AWKE THE WHOLE NIGHT SHE LOOKS COMFORTABLE BUT SHE REMAIN N ATRIAL FIB,AND PATIENT DESATURATE TO THE LOW 90 AND HIGHER 80 WITHOUT EVEN DOING ANYTHING. RESPIRATORY GAVE PATIENT BREATHING TREATMENT AND THAT IMPROVE SATURATON.
[2019-09-17] MEDS: DILTIAZEM HCL 60 MG TABLET GT SCH ×4 (00:11→18:00)
[2019-09-17] MEDS: ALBUMIN HUMAN 25% 100 ML IV SCH ×2 (03:41→11:39)
[2019-09-17] MEDS ORDERED: ALBUMIN HUMAN 25% 50 ML IV ONE ×2 (03:51→04:40)
--- NOTE | 2019-09-17 04:30 | NUR ---
CHLORHEXIDIE BATH RENDERED,PATIENT LEFT ANTECUBITAL SITE IS WEEING SEROUSANGUINOUS DRAINAGE.PATIENT DESAT URATE AGAIN AND RESPIORATORY CHANGE HER PULSE OX AND INCREASED FIO12 TO 60% PATIENT TOLERATED FEEDING SO ITS INCREASED TO 40ML/HR.
[2019-09-17 06:35] LABS: ALANINE AMINOTRANSFERASE 65 U/L (12-78); ALBUMIN 2.2 g/dL (3.4-4.8); ANION GAP 8 (5-15); ASPARTATE AMINOTRANSFERASE 55 U/L (10-37); CALCIUM 7.9 mg/dL (8.4-11.0); CHLORIDE 108 mmol/L (98-107); CREATININE 0.88 mg/dL (0.55-1.30); GLUCOSE 224 mg/dL (70-99); POTASSIUM 3.1 mmol/L (3.5-5.1); SODIUM SERUM 145 mmol/L (136-145); UREA NITROGEN, BLOOD 34 mg/dL (8-21)
--- NOTE | 2019-09-17 07:15 | NUR ---
Received shift report from night RN using SBAR.
[2019-09-17] MEDS: IPRATROPIUM/ALBUTEROL SULFATE 3 ML AMPUL.NEB (DUONEB) INH SCH ×4 (07:19→19:42)
[2019-09-17 07:35] LABS: TOTAL BILIRUBIN 0.7 mg/dL (0.0-1.0)
--- NOTE | 2019-09-17 08:15 | NUR ---
Provided oral care, pt tolerated well.
[2019-09-17 08:21] LABS: BASOPHILS % (AUTO) 0.1 % (0.0-2.0); HEMATOCRIT 22.8 % (36-48); HEMOGLOBIN 7.5 g/dL (12.0-16.0); LYMPHOCYTES # (AUTO) 0.9 K/uL (1.0-5.5); LYMPHOCYTES % (AUTO) 5.3 % (20.5-51.5); MEAN CORPUSCULAR HEMOGLOBIN 28 pg (27-31); MEAN CORPUSCULAR HGB CONC 33 % (32-36); MEAN CORPUSCULAR VOLUME 84 fL (79.0-98.0); MONOCYTES # (AUTO) 0.2 K/uL (0.0-1.0); MONOCYTES % (AUTO) 1.5 % (1.7-9.3); NEUTROPHILS # (AUTO) 15.6 K/uL (1.8-7.7); NEUTROPHILS % (AUTO) 93.1 % (40.0-70.0); RED BLOOD CELL COUNT(AUTO) 2.72 MIL/uL (4.2-6.2); RED CELL DISTRIBUTION WIDTH 17.5 % (9.0-15.0); WHITE BLOOD COUNT (AUTO) 16.8 K/uL (4.8-10.8)
--- NOTE | 2019-09-17 08:30 | NUR ---
AM Assessment PT intubated. No signs of distress or pain. Bed locked and in lowest position with call light in place. No restraints noted.
[2019-09-17 08:37] LABS: PLATELET COUNT (AUTO) 70 K/uL (130-430)
[2019-09-17] MEDS: VANCOMYCIN HCL 1 GM/NS PREMIX 250 ML IV SCH (09:02)
[2019-09-17] MEDS: LEVOFLOXACIN 250 MG/D5W 50 ML IV SCH (09:03)
[2019-09-17] MEDS: MEROPENEM 500 MG in NS 50 ML IV SCH ×2 (09:04→21:47)
[2019-09-17] MEDS: ASCORBIC ACID 500 MG TABLET GT SCH (09:05)
[2019-09-17] MEDS: NEPHROVITE, (FOLIC ACID/VITAMIN B COMP W-C 1 TAB) GT SCH (09:05)
--- NOTE | 2019-09-17 09:45 | NUR ---
PT self extubated. Pt in respiratory distress. Called Code Blue. Response by SENIOR PROCUREMENT MANAGER, MD, RCT. Pt reintubated with Size 7.5 lipline [address] Martin. Replace OG tube with 16 F. Auscultated and confirm okay to use by Dr. Martin. Confirmation of placement with CXR confirmed. Placed PT on bilateral soft wrist restraints with orders placed in EMAR. Pt is currently saturating at 85% will inform pulmonary MD, primary, and consults as needed. All IV fluids were DC during code. Will resume and continue to monitor.
--- NOTE | 2019-09-17 10:00 | NUR ---
RT NOTE: 0940 Pt self-extubated. Pt's SpO2 dropping and WOB is labored. Pt placed on NRB and ABG was drawn shortly after. 1000 Pt placed on BiPAP with settings IPAP 12, EPAP 6, BUR 18 and FiO2 100%. 1023 Code blue was called. CPR started and pt ventilated manually. After a few minutes, pt regained pulse. 1025 Pt successfully intubated by ER doctor with 7.5 ETT at 22cm LL. ETT confirmed by 5 point auscultation, condensation in the tube, CO2 indicator color change, and bilateral chest rise. 1027 Pt placed on vent on previous settings, AC 14, Vt 400, +5, and 100% FiO2. ABG draw in 30 mins. Awaiting for further orders. Addendum: 09/17/19 at 1214 by Shelia Gauthier RT Amended: Links added.
[2019-09-17] MEDS ORDERED: LORazepam 2 MG/ML VIAL ONE (10:42)
[2019-09-17] MEDS ORDERED: LORazepam 2 MG/ML VIAL IVP ONE (10:42)
--- NOTE | 2019-09-17 10:45 | NUR ---
TO Received orders from Dr Abdul.
[2019-09-17] MEDS: FUROSEMIDE 100 MG in D5W 90 ML IV SCH ×2 (11:00→17:23)
[2019-09-17] MEDS ORDERED: DILTIAZEM HCL 25 MG/5 ML VIAL IVP ONE (11:15)
[2019-09-17] MEDS ORDERED: methylPREDNISolone SOD SUCC 40 MG/ML VIAL IVP ONE (11:30)
[2019-09-17] MEDS: SOD FERRIC GLUC COMPLEX/SUC 125 MG in NS 100 ML IV SCH (11:47)
--- NOTE | 2019-09-17 12:00 | NUR ---
RT NOTE: 1153 Increased PEEP to [address] Abdul and ABG results. SpO2 is persistently low. and RN aware. Addendum: 09/17/19 at 1221 by Shelia Gauthier RT Amended: Links added.
[2019-09-17] MEDS ORDERED: EPINEPHrine JECT 0.1 MG/ML SYR IVP ONE (12:02)
[2019-09-17] MEDS: NORMAL SALINE 5 ML DISP.SYRIN IVF SCH ×2 (12:13→21:48)
--- NOTE | 2019-09-17 13:00 | NUR ---
Provided oral care, pt tolerated well.
--- NOTE | 2019-09-17 14:00 | NUR ---
Pt pupil reflex still fixed. Will continue to monitor neurological status.
--- NOTE | 2019-09-17 14:30 | NUR ---
Blood Transfusion. Administered 1 Unit of RBC. No signs of adverse reaction. Started at 60cc/hr. Titrated to 125cc/hr at 1445. Will titrated as PT tolerates infusion.
--- NOTE | 2019-09-17 16:30 | NUR ---
Transfusion complete with no signs of fluid overload or adverse reaction. temp of 98.5 recorded at end of transfusion. Will continue to monitor.
--- NOTE | 2019-09-17 16:40 | NUR ---
Provided oral care, pt tolerated well.
[2019-09-17] MEDS: KCL 40mEq in D5/0.45NS 1000 mL 1,000 ML IV SCH (17:15)
[2019-09-17] MEDS: DILTIAZEM HCL 125 MG in D5W 100 ML IV SCH (17:30)
--- NOTE | 2019-09-17 18:00 | NUR ---
MD Rounds Dr Conway bedside. Orders received.
[2019-09-17] MEDS ORDERED: KCL 40 mEq in 100 mL (PREMIX) 100 ML IV ONE (19:00)
--- NOTE | 2019-09-17 19:05 | NUR ---
Endorsement Provided shift report to night RN's using SBAR.
--- NOTE | 2019-09-17 19:10 | NUR ---
PM SHIFT ASSESSMENT Pt is A/O x1. Pt is on the vent, tolerating current vent settings. Afib with RVR on the monitor. Almaraz catheter in place and draining to gravity. KEVIN PICC noted with IVF infusing. IV to LFA 22G, no signs of infiltration noted. OG tube in place with tubefeeding infusing. Bilateral wrist restraints in place, no signs of skin issues noted. Safety precautions in place, call light within reach. Will continue to monitor.
--- NOTE | 2019-09-17 19:21 | NUR ---
Closing Notes PT resting with AFIB. No immediate signs of pain or distress. Night RN's bedside. Bed locked and in the lowest position.
[2019-09-17] MEDS ORDERED: KCL 20 mEq in 100 mL (PREMIX) 0 ML IV ONE (20:09)
--- NOTE | 2019-09-17 20:15 | NUR ---
RT CHANGED FIO2 100% TO 80%.
[2019-09-17] MEDS ORDERED: MAGNESIUM SULFATE 4 GM in D5W 250 ML IV ONE (21:00)
--- NOTE | 2019-09-17 21:05 | NUR ---
Received report from previous RN name Kathy. Pt. in bed resting with Trach attached to the Vent. Pt. sleeping, lethargic and quiet. Vent settings in AC = 28, TV = 400 , F102 = 80 % , Peep= 12. Pt. IVF of D5 1/2 NS plus 40 meq. KCL running continuously @ a rate of 30 ml./hr. IV access @ the KEVIN Piccline - double lumen, keep patent and intact. Pt. on bedrest with OGT Feeding of Vital AF @ 40 ml./hr that is temporarily held by previous RN for 1 hr. due to high residuals greater > 100 . Continuous drip of Cardiezem @ 10 mg./hr which is equivalent = 10 mls. hr. to treat/control fast heart rate from > 100's per minute to normalize range of heart rate within 60-100 per minute. Lasix drip @ 4mls./hr. to help pt. diurese and F/C attached to the pt. to monitor pt.'s output. HOB UP @ all times. Suctioned secretions from the Trach. and mouth. RT been given respiratory treatment and care to the pt. per RT Protocol. Pt. assessment done from head to toe. Turned to the sides with pillows supporting back, both arms and feet. Pt. with Bilateral SCD's as DVT prophylaxis. keep pt. 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 V/s taken and recorded. Will monitor pt. continuously.
--- NOTE | 2019-09-17 21:05 | NUR ---
REPORT GIVEN TO SAMIA MACIAS USING NURSING SBAR. ALL PATIENT CARE ENDORSED.
--- NOTE | 2019-09-17 21:47 | NUR ---
Scheduled medications given @ this time. Pt. sleeping and unable to learn from Nurse's health teachings.
[2019-09-17] MEDS: methylPREDNISolone SOD SUCC 40 MG/ML VIAL IVP SCH (21:48)
--- NOTE | 2019-09-17 22:00 | NUR ---
Pt. HOB UP @ 35-45 degrees angle. suctioned secretions from Trach. and oral areas. Oral care given. Keep airway open and patent. Bilateral Soft wrist restraints released and pt. given passive ROM exercise on both arms for 10-15 minutes, both Right and left radial (+) for pulses and warm to touch. OGT feeding resume @ the same rate of 40 ml/hr. Cardiezem drip continuous @ 10 mg./hr = 10 mls./hr. and Lasix @ 4ml./hr. and the IVF of D5 1/2 NS with 40 meq. KCL continuously running @ 30 ml./hr. Keep pt. 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 Bilateral soft wrist restraints tied back and secured properly @ the sides of the bed for pt. safety afoter 15 minutes of released.
[2019-09-18] VITALS (32 sets, daily range): BP systolic 96–147
[2019-09-18] MEDS: DILTIAZEM HCL 60 MG TABLET GT SCH ×2 (00:08→06:42)
--- NOTE | 2019-09-18 00:30 | NUR ---
Due med. @ midnight given, Cardiezem 60 mg. given by OGT. see/refer to the Emar. Keep warm and tidy in bed.
[2019-09-18] MEDS: IPRATROPIUM/ALBUTEROL SULFATE 3 ML AMPUL.NEB (DUONEB) INH SCH ×7 (01:06→23:09)
--- NOTE | 2019-09-18 02:00 | NUR ---
Pt. asleep, no s/s of RR distress. Face and body looks calm and relaxed. Turned pt. slightly to the sides with pillows supporting back, both arms, legs and feet. keep warm. Continue to monitor pt. cardiac and respiratory status. RT @ the bedside.
--- NOTE | 2019-09-18 04:00 | NUR ---
Pt. asleep. Suctioned secretions from the Trach. and mouth . Turned to the sides and supported by pillows @ the back, arms, legs and feet. Released restraints for 10 minutes and provided pt . passive ROM exercises. HOB up @ all times for safety. Keep safe and temperature logging operator bed.
--- NOTE | 2019-09-18 05:00 | NUR ---
Complete bedbath given to pt. Pt. made small pasty brownish BM. Bedbath, washed, cleansed and changed pt.'s gown, chux and bed linens. Keep pt. clean, dry, safe, warm and comfortable in bed.
[2019-09-18 06:27] LABS: ALANINE AMINOTRANSFERASE 316 U/L (12-78); ALBUMIN 2.8 g/dL (3.4-4.8); ANION GAP 9 (5-15); ASPARTATE AMINOTRANSFERASE 447 U/L (10-37); CALCIUM 8.2 mg/dL (8.4-11.0); CHLORIDE 108 mmol/L (98-107); CREATININE 1.27 mg/dL (0.55-1.30); GLUCOSE 237 mg/dL (70-99); POTASSIUM 4.5 mmol/L (3.5-5.1); SODIUM SERUM 145 mmol/L (136-145); TOTAL BILIRUBIN 1.9 mg/dL (0.0-1.0); UREA NITROGEN, BLOOD 55 mg/dL (8-21)
--- NOTE | 2019-09-18 06:40 | NUR ---
Due med. given to pt. @ around this time. See Emar for the correct time due meds. given. Will continue to monitor pt. Cardio-respiratory status.
[2019-09-18] MEDS: NORMAL SALINE 5 ML DISP.SYRIN IVF SCH ×3 (06:42→23:01)
--- NOTE | 2019-09-18 07:05 | NUR ---
Opening Note Patient received resting in bed at this time. 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 Patient intubated and on ventilator with settings AC 28, tidal volume 400, FiO2 60%, and PEEP 12. Patient in no signs of distress at this time. Patient has a KEVIN PICC line infusing D5 1/2 NS + 40 meq @ 30 ml/hr. Patient on cardizem drip at 10 mg/hr and lasix drip at 4 mg/hr. Patient has an OGT infusing Vital AF 1.2 at 40 ml/hr. Patient has a carpio catheter draining yellow urine. Skin intact. Safety precautions enforced.
[2019-09-18] MEDS: VANCOMYCIN HCL 1 GM/NS PREMIX 250 ML IV SCH (08:11)
[2019-09-18] MEDS: MEROPENEM 500 MG in NS 50 ML IV SCH ×2 (08:12→21:21)
[2019-09-18] MEDS: methylPREDNISolone SOD SUCC 40 MG/ML VIAL IVP SCH ×2 (08:13→21:21)
[2019-09-18] MEDS: ASCORBIC ACID 500 MG TABLET GT SCH (08:13)
[2019-09-18] MEDS: NEPHROVITE, (FOLIC ACID/VITAMIN B COMP W-C 1 TAB) GT SCH (08:13)
[2019-09-18] MEDS: LEVOFLOXACIN 250 MG/D5W 50 ML IV SCH (08:13)
--- NOTE | 2019-09-18 09:10 | NUR ---
0910 TITRATED O2 TO 50%. WILL CONTINUE TO MONITOR AND TITRATE TO KEEP SATS 90-92 Addendum: 09/18/19 at 0944 by Kathy Huitron RT Amended: Links added.
[2019-09-18] MEDS: DILTIAZEM HCL 125 MG in D5W 100 ML IV SCH (09:47)
--- NOTE | 2019-09-18 11:00 | NUR ---
MD Kori Crowder at bedside for examination.
[2019-09-18] MEDS: SOD FERRIC GLUC COMPLEX/SUC 125 MG in NS 100 ML IV SCH (11:35)
[2019-09-18 11:39] LABS: BASOPHILS % (AUTO) 0.2 % (0.0-2.0); HEMOGLOBIN 8.5 g/dL (12.0-16.0); LYMPHOCYTES # (AUTO) 1.1 K/uL (1.0-5.5); LYMPHOCYTES % (AUTO) 5.2 % (20.5-51.5); MEAN CORPUSCULAR HEMOGLOBIN 28 pg (27-31); MEAN CORPUSCULAR HGB CONC 33 % (32-36); MEAN CORPUSCULAR VOLUME 86 fL (79.0-98.0); MONOCYTES # (AUTO) 0.3 K/uL (0.0-1.0); MONOCYTES % (AUTO) 1.3 % (1.7-9.3); NEUTROPHILS # (AUTO) 19.8 K/uL (1.8-7.7); NEUTROPHILS % (AUTO) 93.3 % (40.0-70.0); RED BLOOD CELL COUNT(AUTO) 3.03 MIL/uL (4.2-6.2); RED CELL DISTRIBUTION WIDTH 16.7 % (9.0-15.0); WHITE BLOOD COUNT (AUTO) 21.2 K/uL (4.8-10.8)
--- NOTE | 2019-09-18 12:00 | NUR ---
RN Rounds Patient remains lethargic with VSS. Patient in no signs of distress.
[2019-09-18 12:08] LABS: PLATELET COUNT (AUTO) 29 K/uL (130-430)
[2019-09-18] MEDS: DILTIAZEM HCL 60 MG TABLET PO SCH ×2 (13:26→21:22)
--- NOTE | 2019-09-18 15:55 | NUR ---
Noted residual amount from the OGT to be coffee-ground colored as well as from the mouth. Patient suctioned, total output noted to be 300 ml.
--- NOTE | 2019-09-18 16:00 | NUR ---
RN Rounds Patient lethargic at this time. Patient cleaned and bed bath given. Patient in no signs of distress.
[2019-09-18] MEDS: KCL 40mEq in D5/0.45NS 1000 mL 1,000 ML IV SCH (16:30)
--- NOTE | 2019-09-18 16:34 | NUR ---
Dr. Mena called back, gave updated regarding patient condition. Received orders.
--- NOTE | 2019-09-18 16:35 | NUR ---
Informed Dr. Garzon regarding platelet count. No new orders received.
[2019-09-18] MEDS: FUROSEMIDE 100 MG in D5W 90 ML IV SCH (18:02)
[2019-09-18 18:35] LABS: HEMATOCRIT 26.3 % (36-48); HEMOGLOBIN 8.6 g/dL (12.0-16.0); MEAN CORPUSCULAR HEMOGLOBIN 28 pg (27-31); MEAN CORPUSCULAR HGB CONC 33 % (32-36); MEAN CORPUSCULAR VOLUME 86 fL (79.0-98.0); RED BLOOD CELL COUNT(AUTO) 3.05 MIL/uL (4.2-6.2); WHITE BLOOD COUNT (AUTO) 25.6 K/uL (4.8-10.8)
[2019-09-18 19:08] LABS: PLATELET COUNT (AUTO) 22 K/uL (130-430)
[2019-09-18 19:11] LABS: BAND % (MANUAL) 2 % (0-6); BASOPHILS % (MANUAL) 0 % (0-2); CORRECTED WHITE BLOOD COUNT 23.9 K/uL (4.5-11.0); EOSINOPHILS % (MANUAL) 0 % (0-7); LYMPHOCYTES % (MANUAL) 4 % (20-46); MONOCYTES % (MANUAL) 2 % (0-11)
--- NOTE | 2019-09-18 19:21 | NUR ---
Closing Note Endorsed to data entry processor RN using SBAR format. Patient in no signs of distress.
--- NOTE | 2019-09-18 20:00 | NUR ---
LETHARGIC. DOES NOT FOLLOW COMMANDS. ORALLY INTUBATED. SUCTIONED WITH SCANT AMOUNT OF THIN CLEAR MUCUS OBTAINED. ORAL CARE GIVEN. OGT FEEDING ON HOLD. OGT TO LIS WITH GREENISH BROWN SECRETIONS DRAINING. BREATH SOUNDS ESSENTIALLY CLEAR. BOWEL SOUNDS (+). PULSES PALPABLE. KOBE SOFT WRIST RESTRAINTS ON FOR SAFETY. SCD'S IN PLACE. KEVIN PICC LINE DRSNataly D/I. AFIB. ON LASIX DRIP AT 4MG/HR. WOODY CATH PATENT DRAINING HAZY YELLOW URINE TP GRAVITY. DR BATES HERE, SEEN PT. UPDATED ON STATUS. NO NEW ORDERS GIVEN.
--- NOTE | 2019-09-18 21:00 | NUR ---
DR SON HERE, SEEN PT. UPDATED ON STATUS. NO NEW ORDERS GIVEN.
--- NOTE | 2019-09-18 22:00 | NUR ---
SUCTIONED. TURNED. HS CARE
[2019-09-19] VITALS (26 sets, daily range): BP systolic 90–138
--- NOTE | 2019-09-19 | NUR ---
SUCTIONED. TURNED. ORAL CARE GIVEN PULSES PALPABLE. OGT TO LIS W/ BROWNISH SECRETIONS DRAINING.
--- NOTE | 2019-09-19 04:00 | NUR ---
ORAL CARE. RESTRAINTS OFF.
[2019-09-19] MEDS: IPRATROPIUM/ALBUTEROL SULFATE 3 ML AMPUL.NEB (DUONEB) INH SCH ×4 (04:03→20:15)
--- NOTE | 2019-09-19 05:00 | NUR ---
CHG BATH GIVEN. 1 SMEAR OF STOOL DEFECATED, LUIS E-CARE DONE. WOODY CARE, BACK CARE, Z-GUARD APPLIED TO PERINEUM, SKIN CARE RENDERED. PARTIAL LINEN CHANGE. DOES NOT ASSIST WITH TURNING. LEEROY PROC WELL.
--- NOTE | 2019-09-19 06:00 | NUR ---
UO GOOD. NGT 300CC OUT. REMAINS IN GUARDED CONDITION.
[2019-09-19] MEDS: DILTIAZEM HCL 60 MG TABLET PO SCH ×3 (06:04→21:35)
[2019-09-19] MEDS: NORMAL SALINE 5 ML DISP.SYRIN IVF SCH ×3 (06:04→21:36)
[2019-09-19 06:12] LABS: BASOPHILS # (AUTO) 0.1 K/uL (0.0-0.2); BASOPHILS % (AUTO) 0.5 % (0.0-2.0); HEMATOCRIT 25.1 % (36-48); HEMOGLOBIN 8.3 g/dL (12.0-16.0); LYMPHOCYTES # (AUTO) 0.9 K/uL (1.0-5.5); LYMPHOCYTES % (AUTO) 3.2 % (20.5-51.5); MEAN CORPUSCULAR HEMOGLOBIN 29 pg (27-31); MEAN CORPUSCULAR HGB CONC 33 % (32-36); MEAN CORPUSCULAR VOLUME 86 fL (79.0-98.0); MONOCYTES # (AUTO) 0.4 K/uL (0.0-1.0); MONOCYTES % (AUTO) 1.5 % (1.7-9.3); NEUTROPHILS # (AUTO) 26.6 K/uL (1.8-7.7); RED BLOOD CELL COUNT(AUTO) 2.92 MIL/uL (4.2-6.2); RED CELL DISTRIBUTION WIDTH 17.1 % (9.0-15.0); WHITE BLOOD COUNT (AUTO) 28.1 K/uL (4.8-10.8)
[2019-09-19 06:20] LABS: ALANINE AMINOTRANSFERASE 319 U/L (12-78); ALBUMIN 2.2 g/dL (3.4-4.8); ANION GAP 9 (5-15); ASPARTATE AMINOTRANSFERASE 220 U/L (10-37); BILIRUBIN,DIRECT 0.4 mg/dL (0.0-0.3); CALCIUM 7.9 mg/dL (8.4-11.0); CHLORIDE 107 mmol/L (98-107); CREATININE 1.26 mg/dL (0.55-1.30); GLUCOSE 229 mg/dL (70-99); POTASSIUM 3.1 mmol/L (3.5-5.1); SODIUM SERUM 142 mmol/L (136-145); TOTAL BILIRUBIN 1.1 mg/dL (0.0-1.0); UREA NITROGEN, BLOOD 72 mg/dL (8-21)
[2019-09-19 06:24] LABS: INR 2.1 (0.8-1.2)
[2019-09-19 06:45] LABS: PLATELET COUNT (AUTO) 38 K/uL (130-430)
--- NOTE | 2019-09-19 07:28 | NUR ---
AM ASSESSMENT Report received from Jim GRACIA using SBAR.
[2019-09-19] MEDS: VANCOMYCIN HCL 750 MG in NS 250 ML IV SCH (07:53)
[2019-09-19] MEDS ORDERED: PHYTONADIONE 10 MG/ML AMP SUBCUT ONE (08:15)
[2019-09-19] MEDS: methylPREDNISolone SOD SUCC 40 MG/ML VIAL IVP SCH ×2 (08:25→21:34)
[2019-09-19] MEDS: ASCORBIC ACID 500 MG TABLET GT SCH (08:25)
[2019-09-19] MEDS: NEPHROVITE, (FOLIC ACID/VITAMIN B COMP W-C 1 TAB) GT SCH (08:25)
[2019-09-19] MEDS: ACETAMINOPHEN 650 MG/20.3 ML UDC GT PRN (08:28)
[2019-09-19] MEDS: MEROPENEM 500 MG in NS 50 ML IV SCH ×2 (09:14→21:34)
[2019-09-19] MEDS: KCL 40mEq in D5/0.45NS 1000 mL 1,000 ML IV SCH (09:15)
[2019-09-19 10:45] LABS: NEUTROPHILS % (AUTO) 94.8 % (40.0-70.0)
[2019-09-19] MEDS: SOD FERRIC GLUC COMPLEX/SUC 125 MG in NS 100 ML IV SCH (10:54)
[2019-09-19] MEDS ORDERED: POTASSIUM CHLORIDE 40 MEQ in NS 250 ML IV ONE (11:00)
--- NOTE | 2019-09-19 12:02 | NUR ---
Oral Care Pt provided oral care, pt tolerated well.
--- NOTE | 2019-09-19 12:05 | NUR ---
Awake Pt has eyes open, denies any pain at this time. Pt is able to nod head appropriately to questions to asked.
--- NOTE | 2019-09-19 14:06 | NUR ---
Gas Plumber: Met with pt. to conduct a Discharge Planning Assessment IT OPERATIONS ANALYST attempted to meet with pt. on however she was intubated. IT OPERATIONS ANALYST attempted to meet with pt. again today ,but learned she was still intubated. Pt. has extubated herself, but was intubated again. IT OPERATIONS ANALYST called the facility from where she came, [facility] at [phone], but was told pt. has no family as a contact. IT OPERATIONS ANALYST was not able to conduct a discharge planning assessment or meet with Pt.
--- NOTE | 2019-09-19 14:11 | NUR ---
Nutrition F/U RD reviewed pt's current EMR record including diet Hx, physician notes, nursing notes, pertinent labs/meds/procedures, care trends, and care activity. Admission Dx: Hypotension, hyponatremia, pneumonia R pleural effusion Pt also found w/ sepsis per physician notes PMH: OA, UTI, L femur fracture per physician notes Current Diet Order/Nutrition Support: Vital AF 1.2 at 360ml/hr to goal 40ml/hr, FWF 100ml Q6H via OGT x 3 days Subjective Info: Pt was seen earlier today, +intubated on vent support w/ RN providing care at bedside. EN infusing at 10ml/hr. Per RN report, pt had 600cc residual yesterday and MD ordered to lower EN infusion rate to 10ml/hr. MD plans to get KUB and small bowel follow through if pt is more stable. NEW Estimated Energy Expenditure (kcals/day) -- Minute volume: 10.3/Temperature: 37.39 degrees C 1135 kcal/day (PSU for critical illness, intubated/vent support) Estimated Protein Required (g/day) 68-90 gm/day (1.5-2 gm/kg CBW for sepsis) Estimated Fluid Required (l/day) 1.1-1.4 L/day (25-30 ml/kg CBW for geriatric maintenance) Problem/Etiology/Signs/Symptoms (modified) Inadequate nutritional intakes related to lack of appetite/nutrition support as evidenced by negligible PO intake records/NPO status x2 days. *no longer applicable, on EN support Inadequate EN intake r/t low infusion rate 2/2 altered GI function AEB 600ml residual, EN was held and EN intake meeting <50% of est needs. (*new) Expected Outcomes/Goals - Monitor EN tolerance and intake w/ goal of pt meeting greater than 50% of estimated nutritional needs, labs trending WNL, normal GI function, and skin integrity/wt maintenance Dietitian Recommendations * Recommend continuing Vital AF 1.2 at 10 ml/hr, increase by 10 ml Q8h to goal rate of 40 ml/hr, Free Water Flush: 100 ml Q6h via OGT Provides: 1152 kcal/day, 72 gm protein/day, and 1179 ml free water/day Meets: 101% of estimated caloric needs and 80% of upper end of estimated protein needs Follow Up High Risk: F/U in 2-3 days
--- NOTE | 2019-09-19 14:18 | NUR ---
Dietitian Recommendations * Recommend Vital AF 1.2 at 30 ml/hr, increase by 5 ml Q8h to goal rate of 40 ml/hr, Free Water Flush: 100 ml Q6h via OGT Provides: 1152 kcal/day, 72 gm protein/day, and 1179 ml free water/day Meets: 101% of estimated caloric needs and 80% of upper end of estimated protein needs Please see nutrition f/u for details. FCI, RD
--- NOTE | 2019-09-19 16:09 | NUR ---
PATIENT RESTING: Patient resting quietly. No acute distress noted.
--- NOTE | 2019-09-19 19:15 | NUR ---
Closing Notes Pt endorsed to night RN using SBAR.
--- NOTE | 2019-09-19 20:00 | NUR ---
LETHARGIC. ORALLY INTUBATED. SUCTIONED WITH SMALL AMOUNT OF THIN WHITE MUCUS OBTAINED. ORAL CARE GIVEN. OGT WITH VITAL AF 1.2 AT 10CC/HR. RESIDUAL CHECK 5CC. KEVIN PICC LINE DRSG D/I. ON LASIX DRIP AT 2 MG/HR. KOBE SCD'S IN PLACE. WOODY CATH PATENT DRAINING CLEAR YEN URINE TO GRAVITY. AFIB.
--- NOTE | 2019-09-19 22:00 | NUR ---
SUCTIONED. TURNED. HS CARE GIVEN.
[2019-09-20] VITALS (28 sets, daily range): BP systolic 81–135
--- NOTE | 2019-09-20 | NUR ---
DOZES ON AND OFF. SUCTIONED WITH SAME RESULTS. OGT FLUSHED WITH 100CC H2O.
[2019-09-20] MEDS: IPRATROPIUM/ALBUTEROL SULFATE 3 ML AMPUL.NEB (DUONEB) INH SCH ×6 (00:51→23:00)
--- NOTE | 2019-09-20 02:00 | NUR ---
SLEPT INTERMITTENTLY. SUCTIONED. TURNED. NO DISTRESS NOTED.
--- NOTE | 2019-09-20 04:00 | NUR ---
OPENS EYES SPONTANEOUSLY. SQUEEZES HANDS ON COMMAND. ORAL CARE GIVEN. SUCTIONED. RESIDUAL CHECK 30CC.
--- NOTE | 2019-09-20 05:00 | NUR ---
CHG BATH GIVEN. BACK CARE, LUIS E-CARE, Z-GUARD APPLIED TO PERINEUM, SKIN CARE RENDERED, WOODY CARE DONE. PARTIAL LINEN CHANGE. ASSISTS WITH TURNING. LEEROY PROC WELL.
--- NOTE | 2019-09-20 06:00 | NUR ---
SLEPT FOR LONG PERIODS OF TIME. NO DISTRESS NOTED. SUCTIONED AND TURNED Q2 HRS AND PRN. OGT FLUSHED WITH 100 CC H2O. UO GOOD. REMAINS IN GUARDED CONDITION.
[2019-09-20 06:10] LABS: BASOPHILS % (AUTO) 0.1 % (0.0-2.0); EOSINOPHILS # (AUTO) 0.1 K/uL (0.0-0.4); EOSINOPHILS % (AUTO) 0.5 % (0.0-4.0); HEMATOCRIT 27.3 % (36-48); HEMOGLOBIN 8.9 g/dL (12.0-16.0); LYMPHOCYTES # (AUTO) 0.6 K/uL (1.0-5.5); LYMPHOCYTES % (AUTO) 2.4 % (20.5-51.5); MEAN CORPUSCULAR HEMOGLOBIN 29 pg (27-31); MEAN CORPUSCULAR HGB CONC 33 % (32-36); MEAN CORPUSCULAR VOLUME 88 fL (79.0-98.0); MONOCYTES # (AUTO) 0.4 K/uL (0.0-1.0); MONOCYTES % (AUTO) 1.7 % (1.7-9.3); NEUTROPHILS # (AUTO) 23.8 K/uL (1.8-7.7); NEUTROPHILS % (AUTO) 95.3 % (40.0-70.0); PLATELET COUNT (AUTO) 77 K/uL (130-430); RED BLOOD CELL COUNT(AUTO) 3.11 MIL/uL (4.2-6.2); RED CELL DISTRIBUTION WIDTH 17.3 % (9.0-15.0)
[2019-09-20] MEDS: DILTIAZEM HCL 60 MG TABLET PO SCH ×3 (06:12→22:15)
[2019-09-20] MEDS: NORMAL SALINE 5 ML DISP.SYRIN IVF SCH ×3 (06:13→22:00)
[2019-09-20 06:50] LABS: ALANINE AMINOTRANSFERASE 399 U/L (12-78); ALBUMIN 2.2 g/dL (3.4-4.8); ANION GAP 10 (5-15); ASPARTATE AMINOTRANSFERASE 224 U/L (10-37); CALCIUM 7.7 mg/dL (8.4-11.0); CHLORIDE 114 mmol/L (98-107); CREATININE 1.22 mg/dL (0.55-1.30); GLUCOSE 311 mg/dL (70-99); POTASSIUM 3.2 mmol/L (3.5-5.1); SODIUM SERUM 149 mmol/L (136-145); TOTAL BILIRUBIN 0.9 mg/dL (0.0-1.0); UREA NITROGEN, BLOOD 75 mg/dL (8-21)
--- NOTE | 2019-09-20 07:20 | NUR ---
RECEIVED NURSING REPORT FROM DESK OPERATORANNELISE CLEMONS R.N
[2019-09-20] MEDS: MEROPENEM 500 MG in NS 50 ML IV SCH ×2 (08:30→21:22)
[2019-09-20] MEDS: VANCOMYCIN HCL 750 MG in NS 250 ML IV SCH (08:30)
[2019-09-20] MEDS: ASCORBIC ACID 500 MG TABLET GT SCH (08:30)
[2019-09-20] MEDS: NEPHROVITE, (FOLIC ACID/VITAMIN B COMP W-C 1 TAB) GT SCH (08:30)
[2019-09-20] MEDS: methylPREDNISolone SOD SUCC 40 MG/ML VIAL IVP SCH ×2 (08:31→21:23)
[2019-09-20] MEDS ORDERED: FUROSEMIDE 100 MG in D5W 90 ML IV SCH (10:00)
[2019-09-20] MEDS ORDERED: POTASSIUM CHLORIDE 20 MEQ/PKT PACKET PO ONE (10:45)
[2019-09-20] MEDS ORDERED: POTASSIUM CHLORIDE 10 MEQ in D5W 1,000 ML IV SCH (10:45)
--- NOTE | 2019-09-20 11:15 | NUR ---
[place] [address] A.M, SEE PATIENT, ORDERED CHANGE VENTILATOR SETTING : SIMV 10, P.S 10, PEEP 5, IF RESPIRATORY DISTRESS BACK TO AC 12
--- NOTE | 2019-09-20 11:17 | NUR ---
DR. MOLINA ORDERED CHANGED IVF TO D5W WITH KCL 10 MEQ AT 50 ML/HOUR, DISCONTINUE LASIX DRIP, FOLLOW UP LAB, ABG, CHEST X-RAY IN A.M, AND STAT DOSE KCL 40 MEQ VIA OGT X ONCE
[2019-09-20] MEDS: ACETAMINOPHEN 650 MG/20.3 ML UDC GT PRN (15:37)
--- NOTE | 2019-09-20 19:39 | NUR ---
GIVE COMPLETE NURSING REPORT TO DECAL APPLIERANNELISE VIEIRA R.N
[2019-09-21] VITALS (30 sets, daily range): BP systolic 107–164
[2019-09-21] MEDS: IPRATROPIUM/ALBUTEROL SULFATE 3 ML AMPUL.NEB (DUONEB) INH SCH ×4 (02:00→23:06)
--- NOTE | 2019-09-21 06:00 | NUR ---
SLEPT ON AND OFF.DENIES ANY PAIN NOR DISCOMFORT.TOLERATING VENT SETTING.AFEBRILE THIS MORNING.TOLERATING TUBE FEEDING
[2019-09-21] MEDS: NORMAL SALINE 5 ML DISP.SYRIN IVF SCH ×2 (06:27→22:00)
[2019-09-21] MEDS: DILTIAZEM HCL 60 MG TABLET PO SCH ×3 (06:28→21:11)
--- NOTE | 2019-09-21 07:05 | NUR ---
RECEIVED NURSING REPORT FROM CAROL VIEIRA R.N
--- NOTE | 2019-09-21 08:20 | NUR ---
DR. ADAMS SEE PATIENT, ORDERED INCREASE FEEDING RATE TO 20 ML/HOUR
[2019-09-21] MEDS: VANCOMYCIN HCL 750 MG in NS 250 ML IV SCH (08:22)
[2019-09-21] MEDS: NEPHROVITE, (FOLIC ACID/VITAMIN B COMP W-C 1 TAB) GT SCH (08:23)
[2019-09-21] MEDS: methylPREDNISolone SOD SUCC 40 MG/ML VIAL IVP SCH ×2 (08:23→21:09)
[2019-09-21] MEDS: ASCORBIC ACID 500 MG TABLET GT SCH (08:23)
[2019-09-21] MEDS: MEROPENEM 500 MG in NS 50 ML IV SCH ×2 (08:23→21:10)
[2019-09-21 08:25] LABS: HEMATOCRIT 27.4 % (36-48); HEMOGLOBIN 8.9 g/dL (12.0-16.0); LYMPHOCYTES # (AUTO) 0.4 K/uL (1.0-5.5); LYMPHOCYTES % (AUTO) 1.9 % (20.5-51.5); MEAN CORPUSCULAR HEMOGLOBIN 29 pg (27-31); MEAN CORPUSCULAR HGB CONC 33 % (32-36); MEAN CORPUSCULAR VOLUME 88 fL (79.0-98.0); MONOCYTES # (AUTO) 0.5 K/uL (0.0-1.0); MONOCYTES % (AUTO) 2.3 % (1.7-9.3); NEUTROPHILS # (AUTO) 21.6 K/uL (1.8-7.7); PLATELET COUNT (AUTO) 57 K/uL (130-430); WHITE BLOOD COUNT (AUTO) 22.5 K/uL (4.8-10.8)
[2019-09-21 09:08] LABS: NEUTROPHILS % (AUTO) 95.8 % (40.0-70.0)
[2019-09-21 09:10] LABS: ALANINE AMINOTRANSFERASE 346 U/L (12-78); ALBUMIN 2.2 g/dL (3.4-4.8); ANION GAP 7 (5-15); ASPARTATE AMINOTRANSFERASE 123 U/L (10-37); CALCIUM 7.7 mg/dL (8.4-11.0); CHLORIDE 109 mmol/L (98-107); CREATININE 1.22 mg/dL (0.55-1.30); GLUCOSE 392 mg/dL (70-99); POTASSIUM 3.5 mmol/L (3.5-5.1); SODIUM SERUM 143 mmol/L (136-145); TOTAL BILIRUBIN 0.9 mg/dL (0.0-1.0); UREA NITROGEN, BLOOD 74 mg/dL (8-21)
--- NOTE | 2019-09-21 09:47 | NUR ---
AT 0940 A.M, SEE PATIENT, ORDERED CHANGE VENT SETTING TO SIMV 4
[2019-09-21] MEDS: KCL 20 mEq in D5W 1000 mL 1,000 ML IV SCH (10:15)
[2019-09-21] MEDS ORDERED: INSULIN REGULAR, HUMAN 100 UNITS/ML, 10 ML VIAL (humuLIN R) SUBCUT PRN (10:15)
[2019-09-21] MEDS: PANTOPRAZOLE SODIUM 40 MG/VIAL (PROTONIX) IVP SCH (10:28)
--- NOTE | 2019-09-21 10:35 | NUR ---
PATIENT,S BLOOD SUGAR 392, ORDERED START ACCU CHECK EVERY 6 HOURS
--- NOTE | 2019-09-21 11:00 | NUR ---
PAGED Dr.PATEL BURNS REGARDING OF ORDER
[2019-09-21] MEDS ORDERED: GASTROGRAFIN 120 ML ONE (11:10)
--- NOTE | 2019-09-21 11:25 | NUR ---
Dr.PATEL BURNS ORDERED GIVE MEROPENEM 500 MG IVPB EVERY 12 HOURS , 7 DAYS DOSES
[2019-09-21] MEDS: INSULIN REGULAR, HUMAN 100 UNITS/ML, 10 ML VIAL (humuLIN R) SUBCUT SCH ×2 (11:42→17:28)
--- NOTE | 2019-09-21 13:20 | NUR ---
PATIENT IS RESTLESS, REPORTED TO Dr. SINGH, ORDERED GIVE ATIVAN 1 MG IVP EVERY 2 HOURS NEED
[2019-09-21] MEDS: LORazepam 2 MG/ML VIAL IVP PRN (13:23)
[2019-09-21] MEDS ORDERED: LORazepam 2 MG/ML VIAL ONE (13:32)
--- NOTE | 2019-09-21 15:28 | NUR ---
PATIENT,S H.R IS SHOW UNCONTROL A-fib, H.R 179-185 /MIN. REPORTED TO Dr. SINGH, ORDERED GIVE DIGOXIN 0.25 MG IV SLOW PUSH X ONCE
[2019-09-21] MEDS ORDERED: DIGOXIN 0.5 MG/2 ML AMP IVP ONE (15:30)
[2019-09-21] MEDS ORDERED: DIGOXIN 0.5 MG/2 ML AMP ONE (15:39)
--- NOTE | 2019-09-21 17:00 | NUR ---
Dr. ADAMS ORDERED ,FOLLOW UP X-RAY : SMALL BOWEL FOLLOWING AT BEDSIDE
--- NOTE | 2019-09-21 18:42 | NUR ---
SEE PATIENT, ORDERED FOLLOW UP CMP, MAGNESIUM, PHOS LEVEL IN TOMORROW A.M, IF MAGNESIUM LEVEL LESS THAN 1.8, PLEASE NOTIFY DR. BATES
--- NOTE | 2019-09-21 19:23 | NUR ---
GIVE COMPLETE NURSING REPORT TO AUTOMOBILE BODY REPAIRER HELPERANNELISE CLEMONS R.N
--- NOTE | 2019-09-21 20:00 | NUR ---
LETHARGIC. ORALLY INTUBATED. SUCTIONED WITH SMALL AMOUNT OF THIN WHITE MUCUS OBTAINED. ORAL CARE GIVEN. OGT FEEDING WITH VITAL AF 1.2 AT 20CC/HR. RESIDUAL CHECK 30CC. EXTREMITIES EDEMATOUS. KEVIN PICC LINE DRSG D/I. SCD IN LEFT LEG. WOODY CATH PATENT DRAINING CLEAR YEN URINE TO GRAVITY. AFIB.
--- NOTE | 2019-09-21 22:00 | NUR ---
SUCTIONED. TURNED. HS CARE GIVEN. LEEORY WELL.
[2019-09-22] VITALS (27 sets, daily range): BP systolic 84–176
--- NOTE | 2019-09-22 | NUR ---
SUCTIONED AGAIN WITH SAME RESULTS. ORAL CARE. REPOSITIONED. RESIDUAL CHECK 20CC. OGT FLUSHED WITH 100CC H2O
[2019-09-22] MEDS: INSULIN REGULAR, HUMAN 100 UNITS/ML, 10 ML VIAL (humuLIN R) SUBCUT SCH ×4 (00:36→18:30)
--- NOTE | 2019-09-22 01:00 | NUR ---
ACCU-CHEK 235, 4 UNITS REGULAR INSULIN SQ GIVEN PER SLIDING SCALE COV.
[2019-09-22] MEDS: IPRATROPIUM/ALBUTEROL SULFATE 3 ML AMPUL.NEB (DUONEB) INH SCH ×4 (02:46→15:37)
--- NOTE | 2019-09-22 04:00 | NUR ---
CHG BATH GIVEN. ORAL CARE, BACK CARE, WOODY CARE. Z-GUARD APPLIED TO PERINEUM, SKIN CARE RENDERED. PARTIAL LINEN CHANGE DONE. DOES NOT ASSIST WITH TURNING. TOLERATED PROCEDURE WELL. RESIDUAL CHECK 30CC.
[2019-09-22] MEDS: NORMAL SALINE 5 ML DISP.SYRIN IVF SCH ×2 (06:00→13:32)
--- NOTE | 2019-09-22 06:00 | NUR ---
SLEPT FOR LONG PERIODS OF TIME. UO GOOD. SUCTIONED AND TURNED Q2 HRS AND PRN. ACCU-CHEK 239, 4 UNITS REGULAR INSULIN SQ GIVEN. OGT FLUSHED WITH 100CC H2O. REMAINS IN GUARDED CONDITION.
[2019-09-22 06:31] LABS: BASOPHILS % (AUTO) 0.1 % (0.0-2.0); HEMATOCRIT 29.2 % (36-48); HEMOGLOBIN 9.4 g/dL (12.0-16.0); LYMPHOCYTES # (AUTO) 0.4 K/uL (1.0-5.5); LYMPHOCYTES % (AUTO) 1.5 % (20.5-51.5); MEAN CORPUSCULAR HEMOGLOBIN 29 pg (27-31); MEAN CORPUSCULAR HGB CONC 32 % (32-36); MEAN CORPUSCULAR VOLUME 90 fL (79.0-98.0); MONOCYTES # (AUTO) 0.7 K/uL (0.0-1.0); MONOCYTES % (AUTO) 2.5 % (1.7-9.3); NEUTROPHILS # (AUTO) 26.8 K/uL (1.8-7.7); NEUTROPHILS % (AUTO) 95.9 % (40.0-70.0); PLATELET COUNT (AUTO) 73 K/uL (130-430); RED BLOOD CELL COUNT(AUTO) 3.26 MIL/uL (4.2-6.2); RED CELL DISTRIBUTION WIDTH 17.8 % (9.0-15.0)
[2019-09-22] MEDS: DILTIAZEM HCL 60 MG TABLET PO SCH ×2 (06:41→13:33)
[2019-09-22] MEDS: KCL 20 mEq in D5W 1000 mL 1,000 ML IV SCH (06:42)
[2019-09-22 06:49] LABS: ALANINE AMINOTRANSFERASE 268 U/L (12-78); ALBUMIN 2.2 g/dL (3.4-4.8); ANION GAP 7 (5-15); ASPARTATE AMINOTRANSFERASE 79 U/L (10-37); CALCIUM 7.9 mg/dL (8.4-11.0); CHLORIDE 115 mmol/L (98-107); CREATININE 0.96 mg/dL (0.55-1.30); GLUCOSE 256 mg/dL (70-99); PHOSPHORUS 2.8 mg/dL (2.7-4.5); POTASSIUM 3.8 mmol/L (3.5-5.1); SODIUM SERUM 150 mmol/L (136-145); UREA NITROGEN, BLOOD 64 mg/dL (8-21)
--- NOTE | 2019-09-22 07:15 | NUR ---
Opening Note Received bedside report from endorsing RN for continuation of care. Received patient resting in bed, arousable to touch, no signs or symptoms of acute distress noted. Bed locked in lowest position and bed alarm on. Fall and safety precautions in place.
--- NOTE | 2019-09-22 07:30 | NUR ---
Dr. Olivo at bedside examining patient. No new orders. Addendum: 09/22/19 at 0914 by Rosario Hernandez RN New orders received.
[2019-09-22] MEDS: LORazepam 2 MG/ML VIAL IVP PRN (07:47)
[2019-09-22] MEDS ORDERED: MINERAL OIL 133 ML ENEMA RC ONE (08:30)
--- NOTE | 2019-09-22 08:35 | NUR ---
RT NOTES Pulled ETT 2cm up secured at 21cm per Dr Ernst's order. No adverse reactions noted. Bilateral b/s/chest rise noted. Vent Settings to AC 14 (due to pt is not tolerating SIMV), per Dr Matos.
[2019-09-22] MEDS ORDERED: MINERAL OIL 30 ML UDC PO SCH (09:00)
[2019-09-22] MEDS: MEROPENEM 500 MG in NS 50 ML IV SCH (09:33)
[2019-09-22] MEDS: VANCOMYCIN HCL 750 MG in NS 250 ML IV SCH (09:34)
[2019-09-22] MEDS: PANTOPRAZOLE SODIUM 40 MG/VIAL (PROTONIX) IVP SCH (09:34)
[2019-09-22] MEDS: methylPREDNISolone SOD SUCC 40 MG/ML VIAL IVP SCH (09:34)
[2019-09-22] MEDS: ASCORBIC ACID 500 MG TABLET GT SCH (09:34)
[2019-09-22] MEDS: NEPHROVITE, (FOLIC ACID/VITAMIN B COMP W-C 1 TAB) GT SCH (09:34)
--- NOTE | 2019-09-22 12:24 | NUR ---
Dr. Justen Horner at bedside examining patient. New orders received.
[2019-09-22] MEDS ORDERED: AMIODARONE HCL 200 MG TABLET PO ONE (12:30)
[2019-09-22] MEDS ORDERED: LORazepam 2 MG/ML VIAL IVP PRN (14:45)
--- NOTE | 2019-09-22 15:21 | NUR ---
Dr. Matos at bedside examining patient. New orders received.
--- NOTE | 2019-09-22 15:53 | NUR ---
Nutrition F/U RD reviewed pt's current EMR record including diet Hx, physician notes, nursing notes, pertinent labs/meds/procedures, care trends, and care activity. Admission Dx: Hypotension, hyponatremia, pneumonia R pleural effusion Pt also found w/ sepsis per physician notes PMH: OA, UTI, L femur fracture per physician notes Current Diet Order/Nutrition Support: Vital AF 1.2 at 10 ml/hr, Free Water Flush: 100 q 6hr via OGT x3 days Subjective Info: Pt was seen earlier today, +intubated on vent support w/ TF hung but not infusing at time of RD visit. Pt appeared to have a distended abd. Per RN, pt was recently turned, and TF was held. She stated that she kept TF off d/t pt's abd distension. Per GI physician notes, plans to increase TF to 30 ml/hr. RN stated pt had no residuals, but also has not had a BM in several days. Per EMR, last BM noted was on 09/17/19 -- 5 days ago. Pt was provided w/ mineral oil and enema this morning per RN report. KUB revealed large stool burden per GI physician note. Pt is not yet meeting optimal nutritional needs. NEW Estimated Energy Expenditure (kcals/day) -- Minute volume: 12.3/Temperature: 37.4 degrees C 1194 kcal/day (PSU for critical illness, intubated/vent support) Estimated Protein Required (g/day) 68-90 gm/day (1.5-2 gm/kg CBW for sepsis) Estimated Fluid Required (l/day) 1.1-1.4 L/day (25-30 ml/kg CBW for geriatric maintenance) Problem/Etiology/Signs/Symptoms (modified) Inadequate nutritional intakes related to lack of appetite/nutrition support as evidenced by negligible PO intake records/NPO status x2 days. *no longer applicable, on EN support Inadequate EN intake r/t low infusion rate 2/2 altered GI function AEB 600ml residual, EN was held, and EN intake meeting <50% of est needs. (*ongoing) Expected Outcomes/Goals - Monitor EN tolerance and intake w/ goal of pt meeting greater than 50% of estimated nutritional needs, labs trending WNL, normal GI function, and skin integrity/wt maintenance Dietitian Recommendations * Recommend Vital AF 1.2 at 10 ml/hr, increase by 10 ml Q8h to goal rate of 40 ml/hr, Free Water Flush: 100 ml Q6h via OGT Provides: 1152 kcal/day, 72 gm protein/day, and 1179 ml free water/day Meets: 101% of estimated caloric needs and 80% of upper end of estimated protein needs Follow Up High Risk: F/U in 2-3 days Addendum: 09/22/19 at [address] CORRECTION: Dietitian Recommendations * Recommend Vital AF 1.2 at 10 ml/hr, increase by 10 ml Q8h to goal rate of 40 ml/hr, Free Water Flush: 100 ml Q6h via OGT Provides: 1152 kcal/day, 72 gm protein/day, and 1179 ml free water/day Meets: 96% of estimated caloric needs and 80% of upper end of estimated protein needs LP, RD Please refer to Nutrition F/U for details.
--- NOTE | 2019-09-22 15:58 | NUR ---
Dietitian Recommendations * Recommend Vital AF 1.2 at 10 ml/hr, increase by 10 ml Q8h to goal rate of 40 ml/hr, Free Water Flush: 100 ml Q6h via OGT Provides: 1152 kcal/day, 72 gm protein/day, and 1179 ml free water/day Meets: 101% of estimated caloric needs and 80% of upper end of estimated protein needs LP, RD Please refer to Nutrition F/U for details. Addendum: 09/22/19 at [address] CORRECTION: Dietitian Recommendations * Recommend Vital AF 1.2 at 10 ml/hr, increase by 10 ml Q8h to goal rate of 40 ml/hr, Free Water Flush: 100 ml Q6h via OGT Provides: 1152 kcal/day, 72 gm protein/day, and 1179 ml free water/day Meets: 96% of estimated caloric needs and 80% of upper end of estimated protein needs LP, RD Please refer to Nutrition F/U for details.
--- NOTE | 2019-09-22 16:05 | NUR ---
DC PLANNING: SPOKE WITH KAITY ([facility] LIAISON AT [facility] ) REGARDING LTAC EVAL. UNABLE TO ACCEPT PATIENT DUE TO PATIENT IS UNREPRESENTED.
--- NOTE | 2019-09-22 18:50 | NUR ---
Dr. Abbott in to see patient. Dr. Abbott made aware of patient status, no new orders received.
--- NOTE | 2019-09-22 19:25 | NUR ---
Endorsement Endorsed bedside report to oncoming RN using SBAR approach for continuation of care.
--- NOTE | 2019-09-22 19:28 | NUR ---
Opening Note Pt in bed unresponsive, no response to sternal chest rub. Pt ST on the monitor w/ HR in the 110s. Pt has weak pulses, Doppler obtained and carotid pulse is faint. BP hard to obtained. Perfusion to lower extremities Pt intubated, ETT in place. Vent settings: AC 14, 400, 40%, +5. PT saturations unable to read consistently. RT called, and Pt Fio2 titrated to 100%. Pt has KEVIN PICC Line in place. D5W w/ 20 MEQ KCL running @ 50cc/hr. IV Site C/D/I, no s/s of infiltration noted. Pt has OGT tube in place, running TF @30cc/hr. 40cc residual noted. Pt ABD is firm and distended. Pt has carpio catheter in place, draining urine. Pt weeping bilaterally from upper extremities. to be paged. Will continue to monitor.
--- NOTE | 2019-09-22 19:46 | NUR ---
Code Blue No pulse obtained via Doppler. O2 saturations and BP remains unable to be obtained. Code Blue initiated. Backboard placed under Pt, Pads applied, and CPR started.
--- NOTE | 2019-09-22 19:56 | NUR ---
CODE BLUE Code successful. ROSC obtained. Pt remains unresponsive, Ventricular Tachycardia noted. Primary MD to be paged. MG infusing via PICC Line.
--- NOTE | 2019-09-22 19:59 | NUR ---
DANIEL Patino Pt went into ventricular stand still, then asystole. No pulse noted. No O2 saturation read. CPR initiated, and DANIEL Patino called.
[2019-09-22] MEDS ORDERED: MAGNESIUM SULFATE 50 ML IV ONE (20:10)
[2019-09-22] MEDS ORDERED: CALCIUM CHLORIDE 1 GM/10 ML DISP.SYRIN (14 mEq Ca++/SYR) IV ONE (20:11)
[2019-09-22] MEDS ORDERED: ATROPINE SULFATE 1 MG/10 ML SYRINGE IVP ONE (20:11)
[2019-09-22] MEDS ORDERED: SODIUM BICARBONATE 8.4% JECT 50 MEQ/50 ML SYRINGE IVP ONE (20:11)
--- NOTE | 2019-09-22 20:12 | NUR ---
CODE Blue Code Blue unsuccessful. No pulse noted, no BP, No O2 saturation reading noted. Pt pronounced by Dr. Dai @2011.
--- NOTE | 2019-09-22 20:13 | NUR ---
CALLED DR. SINGH [phone] INFORMED HIM OF PATIENT'S
--- NOTE | 2019-09-22 20:21 | NUR ---
[facility] called, spoke w/ Frank. Informed Pt is not a suitable candidate. Referral ID #[id number].
--- NOTE | 2019-09-22 20:33 | NUR ---
Corporate Counsel Corporate Counsel ([facility] called. Spoke w/ Urmila. Informed that Pt is not a candidate for a Corporate Counsel's Case. Directed to call [facility].
--- NOTE | 2019-09-22 20:45 | NUR ---
[facility] called. No one answered, no longer office hours. Voicemail left. Awaiting call back.
--- NOTE | 2019-09-22 21:00 | NUR ---
'S INFORMED, PATIENT DR. RAO AND DR. BOSWELL [address] WRAY 2109 SPOKE TO MADI SINGH 2012 SPOKE TO HIM ON CELL PHONE
--- NOTE | 2019-09-22 21:10 | NUR ---
[facility] Received call back from Fabián. Informed of Pt information and TOD. Per Fabián, Pt will need to have documents faxed over to the [facility] prior to acceptance and pick-up of the body. Copy of Certificate, consent for county removal, and permit to handle remains among Documents needed per Fabián. Information to be obtained for release of body to [facility].
[2019-09-23] MEDS ORDERED: AMIODARONE HCL 200 MG TABLET PO SCH (09:00)
--- NOTE | 2019-09-23 11:20 | NUR ---
Social Service Note: FEROZ spoke with Alina at [facility] ([phone]); [facility] does not have any space for pt at this time. Alina states that [facility] will assist hospital with certificate and transfer of body to [facility]. FEROZ has completed the Initial Decedent Referral Report and sent it to the [place] [employer] Office ([phone]). FEROZ has faxed pt's information, time of , doctor signing certificate to [facility] to begin the certificate process. FEROZ will follow up with [place] [employer] for case number.
--- NOTE | 2019-09-28 16:11 | NUR ---
Social Service Note: Pt's case number with the [place] [employer] Office is: [id number]. [facility] spoke with Alina at [facility] who states that they are only waiting for the doctor to sign the certificate and then pt can be transported to the [facility]. Addendum: 09/29/19 at 0840 by Vidya Beltre LCSW Phoned Alina at [facility]. Dr Abbott has signed the certificate. They will finalize the paperwork and phone today to notify when they will brain picker the body, which may not be today. I stressed the limited capacity of our hold and requested a brain picker today if at all possible.
--- NOTE | 2019-09-30 10:28 | NUR ---
Social Service Note: [facility] spoke with Fawn at [facility] who states that the certificate is finalized. [facility] placed call to [facility] and spoke to Mindy who states that all paperwork is on file. Mindy asked that the mortuary transfer all records to the [facility] prior to dropping pt off. [facility] asked Fawn at [facility] if pt can be transferred to [facility] today. Fawn will contact [facility] for date/time when pt can be picked up. Addendum: 09/30/19 at 1646 by Parisa Malone LCSW [facility] spoke with Alina who states that pt will most likely be picked up on Thursday-10/03/19 and transported to [facility].
== END 2019-09-22 20:12 | disposition expired | DRG 870 ==
LOC: EDSEX 13:35 → SED 13:35 → SIC 16:14 → STU 09-12 15:42 → SIC 09-13 16:21
PROVIDERS: ADMIT Internal Medicine; ATTEND Internal Medicine
PROC: 5A09357 Assistance with Respiratory Ventilation, Less than 24 Consecutive Hours, Continuous Positive Airway Pressure (ICD-10-PCS; 2019-09-13)
PROC: 0BH17EZ Insertion of Endotracheal Airway into Trachea, Via Natural or Artificial Opening (ICD-10-PCS; 2019-09-14)
PROC: 5A1945Z Respiratory Ventilation, 24-96 Consecutive Hours (ICD-10-PCS; 2019-09-14)
PROC: 5A09357 Assistance with Respiratory Ventilation, Less than 24 Consecutive Hours, Continuous Positive Airway Pressure (ICD-10-PCS; 2019-09-14)
PROC: 02HV33Z Insertion of Infusion Device into Superior Vena Cava, Percutaneous Approach (ICD-10-PCS; 2019-09-15)
PROC: B548ZZA Ultrasonography of Superior Vena Cava, Guidance (ICD-10-PCS; 2019-09-15)
PROC: 5A1955Z Respiratory Ventilation, Greater than 96 Consecutive Hours (ICD-10-PCS; principal; 2019-09-17)
PROC: 30233N1 Transfusion of Nonautologous Red Blood Cells into Peripheral Vein, Percutaneous Approach (ICD-10-PCS; 2019-09-17)
PROC: 0BH17EZ Insertion of Endotracheal Airway into Trachea, Via Natural or Artificial Opening (ICD-10-PCS; 2019-09-17)
PROC: 5A09357 Assistance with Respiratory Ventilation, Less than 24 Consecutive Hours, Continuous Positive Airway Pressure (ICD-10-PCS; 2019-09-17)
DX: A41.9 Sepsis, unspecified organism (principal); J18.9 Pneumonia, unspecified organism; J96.21 Acute and chronic respiratory failure with hypoxia; E46 Unspecified protein-calorie malnutrition; E87.1 Hypo-osmolality and hyponatremia; I42.9 Cardiomyopathy, unspecified; I47.1 Supraventricular tachycardia; J44.0 Chronic obstructive pulmonary disease with (acute) lower respiratory infection; N17.9 Acute kidney failure, unspecified; N39.0 Urinary tract infection, site not specified; Z68.1 Body mass index [BMI] 19.9 or less, adult; I50.30 Unspecified diastolic (congestive) heart failure; K56.7 Ileus, unspecified; D64.9 Anemia, unspecified; R62.7 Adult failure to thrive; B96.20 Unspecified Escherichia coli [E. coli] as the cause of diseases classified elsewhere; K75.89 Other specified inflammatory liver diseases; D69.6 Thrombocytopenia, unspecified; E11.40 Type 2 diabetes mellitus with diabetic neuropathy, unspecified; R29.6 Repeated falls; C44.91 Basal cell carcinoma of skin, unspecified; E87.6 Hypokalemia; I27.20 Pulmonary hypertension, unspecified; I46.9 Cardiac arrest, cause unspecified; I50.82 Biventricular heart failure; L21.9 Seborrheic dermatitis, unspecified; M19.90 Unspecified osteoarthritis, unspecified site; M81.0 Age-related osteoporosis without current pathological fracture; Z87.440 Personal history of urinary (tract) infections; Z91.81 History of falling; Z79.899 Other long term (current) drug therapy
CPT/HCPCS: 36415; 36600; 71045; 74018; 74250-TC; 80048; 80053; 80076; 80202-TC; 81000-TC; 82533; 82550-TC; 82570-TC; 82607; 82728; 82746; 82803-TC; 82962; 83540-TC; 83550-TC; 83605; 83690-TC; 83735-TC; 83880; 83935-TC; 84100-TC; 84302-TC; 84484; 84550-TC; 85007; 85025; 85027; 85610-TC; 85730-TC; 86886; 86900; 86901; 86920; 87040-TC; 87070-TC; 87081; 87086; 87186-TC; 87205-TC; 92950; 93005; 93306; 94002; 94003; 94640; 94660; 96365; 96375; 99285; C1751; C9113; G0378; J0171; J0461; J0696; J1030; J1160; J1940; J1956; J2060; J2185; J2543; J2916; J2930; J3370; J3430; J3475; J3480; J3490; J7030; J7040; J7042; J7050; J7060; J7620; P9021; P9046; Q0162; Q9963; Q9967